=== PATIENT | male | born 1985 | race Caucasian/White ===

== ENCOUNTER 2016-11-15 20:33 | Inpatient (IN) | payer MEDICAID, OTHER ==
--- NOTE | 2016-11-15 20:42 | EDPHY ---
H & P - Personal History Tetanus Vaccine Date: 2012 HPI/ROS: CHIEF COMPLAINT: altered mental status HISTORY OF PRESENT ILLNESS: 31-year-old male arrives via ambulance after his roommates called 911 because of his altered mental status. The roommates provide the majority of history and states that when they came home he was altered, the patient has a history of frequent cocaine, benzodiazepine, recreational opiate use, alcohol use. Patient states that he did smoke cocaine earlier today. Roommates are not familiar with the etiology of his left ear trauma. They note no history of heroin or methamphetamine use. No history of overdose. No reliable history is obtainable from the patient. Roommate notes the last time he saw him was 10:00 p.m. last evening after the patient consumed a large amount of Xanax. The patient was given Narcan EN route via EMS with no change in symptoms. PRIMARY CARE PROVIDER:none REVIEW OF SYSTEMS: A ten point review of systems was performed and is negative with the exception of the items mentioned in the HPI PAST MEDICAL & SURGICAL HISTORY: No pertinent medical or surgical history according to roommate SOCIAL HISTORY:per roommates, history of cocaine, recreational opiate use, recreational benzodiazepine use, alcohol use. Has lived in [place] for several years PHYSICAL EXAM (Prior to examination, patient consented to physical exam, hands were washed and my usual and customary physical exam procedures followed) 1) GENERAL: Well-developed, well-nourished, alert and oriented person and place , he has difficulty sitting still, he is slurring his words . 2) HEAD: Normocephalic, atraumatic 3) HEENT: Pupils equal, round, reactive to light bilaterally. Sclera anicteric. No raccoon eyes no Andersen sign. Nasopharynx, oropharynx, clear, no lesions, dry mucous membranes. No rhinorrhea. No otorrhea Left ear: Auricular hematoma and abrasion noted with associated tenderness. No hemotympanum. No fluid or blood in the external auditory canal. 4) NECK: Full range of motion, no meningeal signs. No parent pain with palpation of the midline C-spine full range of motion which does not elicit pain 5) LUNGS: Clear auscultation bilaterally, no wheezes, no rhonchi, no retractions. 6) HEART: Regular rate and rhythm, no murmur, no heave, no gallop. 7) ABDOMEN: No guarding, no rebound, no focal tenderness, negative McBurney's, negative Christina's, negative Rovsing's, negative peritoneal sign, 8) MUSCULOSKELETAL: left pretibial scar. Tender to palpation with erythema to the left lateral buttock. Appears to be in pain with range of motion of the femur on acetabulum. There is no shortening or malrotation. No pain with axial loading of the joint. Distal DP PT pulses present and brisk with normal color normal temperature. Compartments are soft in peripheral musculoskeletal system. Moving all extremities, no focal areas of tenderness, no obvious trauma. No peripheral edema or discoloration. 9) BACK: No CVA tenderness, no midline vertebral tenderness, no fluctuance, no step-off, no obvious trauma, no visual or palpable abnormality. 10) SKIN: No rash, no petechiae. DIFFERENTIAL DIAGNOSIS: In no particular order ncluding but not limited to encephalopathy, hypoglycemia, infectious process, electrolyte abnormality, head injury and intoxicants, rhabdomyolysis, compartment syndrome, necrotizing fasciitis (Kev,Africa Janelle) Constitutional: Initial Vital Signs Temperature (C) 36.6 C 11/15/16 20:33 Heart Rate 126 H 11/15/16 20:33 Respiratory Rate 18 11/15/16 20:33 Blood Pressure 112/92 H 11/15/16 20:33 O2 Sat (%) 93 11/15/16 20:33 O2 Delivery Mode Nasal Cannula O2 (L/minute) 2 Allergies/Adverse Reactions: No Known Allergies Allergy (Unverified 04/17/11 14:13) Home Medications: Medication Instructions Recorded NK [No Known Home Meds] 11/16/16 Medical Decision Making - Diagnostics Imaging: Discussed imaging studies w/ call center support representative Radiologist ED Course/Re-evaluation: The patient was evaluated and managed by the physician's assistant designer. My cosignature indicates that I reviewed the chart and I agree with the findings and plan of care as documented. I am the secondary supervising physician. I personally evaluated the patient on numerous occasions. Shortly after his arrival I went examined the patient. GENERAL: Mild acute distress, alert but confused HEENT: Eyes normal to inspection, dry mucous membranes].Left ear swollen. No palpable hematoma. Small abrasion. NECK: No thyromegaly, no lymphadenopathy, supple. RESPIRATORY: [Clear to auscultation bilaterally, no rales, rhonchi or wheezing. CVS: Regular rhythm, tachy, no rubs, murmurs, or gallops. ABDOMEN: Soft, nontender, nondistended, no organomegaly. BACK: Normal to inspection, no CVA tenderness. SKIN: Warm, dry. No pallor. There is a plaque /hive type lesion on his left hip. EXTREMITIES: No pedal edema, no calf tenderness, no Homans sign or cords, no joint swelling. Moves all extremities. NEURO/PSYCH: Alert and oriented x1, confused, normal motor sensory exam. No obvious cranial nerve deficit. I discussed the plan on numerous occasions with Kevin prado. I rechecked the patient on numerous occasions. I had a long discussion with the patient's roommate regarding his presentation. They state that he uses cocaine, opioids and alcohol regularly. They have never seen the patient use methamphetamine. I reviewed the patient's laboratory studies and imaging. I discussed the case with the hospitalist service. Patient required 35 minutes of critical care time. This was exclusive of any unbundled procedure. This was due to the patient's altered mental status, rhabdomyolysis, discussion with roomates, patient, internal medicine. (Maria Esther Howard) 8:40 p.m.: Patient seen on arrival. I have evaluated this patient, he is altered, he has provided a clean-catch urine sample in the emergency department which it has gross hematuric appearance. I discussed the case with Dr. Maria Esther Howard shortly after evaluating the patient. Will obtain multiple diagnostic studies for evaluation of altered mental status including creatinine kinase, toxicology and CT imaging as he is noted to have injury to his left ear and states that 2 days ago he fell off a skateboard impacting his head. CORHIO search is negative. 9:53 p.m.: Patient has been re-evaluated with serial examinations. Official concerns patient is his altered mental status possibly secondary to acute rhabdomyolysis. At this time his creatinine kinase is still being diluted in the laboratory. We have followed the sepsis pathway concerned about possible infection however also concerned about encephalopathy and rhabdomyolysis. He does have an elevated lactate, he has been given aggressive fluid hydration, is noted to have a left sided pneumonia a possibly consistent with aspiration pneumonia as his roommates notes that he has been on his left side for most of the evening they found him on the left side is also noted to have left buttock erythema. Will start the patient on Levaquin as well. 10:20 p.m.: Phone consultation with Dr. Brenden Car, hospitalist to admit patient to the intensive care unit (Africa Angulo) - Data Points Laboratory Results: Laboratory Results 11/15/16 20:30 11/15/16 20:30 Microbiology Results: MICROBIOLOGY 11/15/16 20:25 Urine,Clean Catch Urine Culture - Preliminary Medications Given: Discontinued Medications Fentanyl (Sublimaze) 50 mcg IVP EDNOW ONE Stop: 11/15/16 22:18 Last Admin: 11/15/16 22:20 Dose: 50 mcg Sodium Chloride (Ns) 1,000 mls @ 0 mls/hr IV ONCE ONE PRN Reason: Wide Open Stop: 11/15/16 21:00 Last Admin: 11/15/16 21:12 Dose: 1,000 mls Sodium Chloride (Ns) 1,000 mls @ 0 mls/hr IV ONCE ONE PRN Reason: Wide Open Stop: 11/15/16 21:23 Last Admin: 11/15/16 21:27 Dose: 1,000 mls Levofloxacin/Dextrose (Levaquin 750 Mg (Premix)) 150 mls @ 100 mls/hr IV EDNOW ONE PRN Reason: Protocol Stop: 11/15/16 23:20 Last Admin: 11/15/16 22:02 Dose: 150 mls Sodium Chloride (Ns) 2,300 mls @ 4,600 mls/hr 30 ml/kg infuse over 30 min ( 2300 ml) IV EDNOW ONE PRN Reason: Protocol Stop: 11/15/16 22:20 Last Admin: 11/15/16 22:02 Dose: 2,300 mls Vancomycin HCl 1.5 gm/ (Dextrose) 250 mls @ 166.67 mls/hr IV Q12H ASHLEY PRN Reason: Protocol Stop: 12/15/16 23:44 Last Admin: 11/16/16 00:05 Dose: 250 mls Lorazepam (Ativan Injection) 1 mg IVP EDNOW ONE Stop: 11/15/16 21:23 Last Admin: 11/15/16 21:27 Dose: 1 mg Lorazepam (Ativan Injection) 1 - 2 mg IVP Q4HRS PRN PRN Reason: Anxiety, Unable to Take PO Stop: 05/14/17 23:31 Last Admin: 11/15/16 23:56 Dose: 2 mg Departure - Departure Disposition: [facility] Inpatient Acute Clinical Impression: Encephalopathy acute, Acute hyperkalemia, Dehydration, Polysubstance abuse Acute renal failure Qualifiers: Acute renal failure type: unspecified Qualified Code(s): N17.9 - Acute kidney failure, unspecified Rhabdomyolysis Qualifiers: Rhabdomyolysis type: traumatic Encounter type: initial encounter Qualified Code (s): T79.6XXA - Traumatic ischemia of muscle, initial encounter Hematoma of auricle Qualifiers: Encounter type: initial encounter Laterality: left Qualified Code(s): S00.432A - Contusion of left ear, initial encounter Condition: Critical
--- NOTE | 2016-11-15 20:54 | CPEKG ---
Heart Rate: 126 RR Interval: 476 P-R Interval: 116 QRSD Interval: 92 QT Interval: 300 QTC Interval: 435 P [place]: 54 QRS [place]: 70 T Wave [place]: 49 EKG Severity - OTHERWISE NORMAL ECG - EKG Impression: SINUS TACHYCARDIA EKG Impression: ST ELEV, PROBABLE NORMAL EARLY REPOL PATTERN Electronically Signed By: Maria Esther Howard 15-Nov-2016 23:17:21
[2016-11-15 20:58] LABS: % IMMATURE GRANULYOCYTES 0.9 % (0.0-1.1); ABSOLUTE IMMATURE GRANULOCYTES 0.19 10^3/uL (0.00-0.10); ABSOLUTE NRBC COUNT 0.02 10^3/uL (0-0.01); ADD DIFF? NO; ADD MORPH? NO; ADD SCAN? NO; ATYPICAL LYMPHOCYTE FLAG 0 (0-99); FRAGMENT RBC FLAG 0 (0-99); HEMATOCRIT 49.4 % (40.0-51.0); HEMOGLOBIN 17.1 g/dL (13.7-17.5); LEFT SHIFT FLG 0 (0-99); LIPEMIA HEMOLYSIS FLAG 90 (0-99); MEAN CELL HEMOGLOBIN 32.8 pg (27.9-34.1); MEAN CELL HEMOGLOBIN CONCENTR. 34.6 g/dL (32.4-36.7); MEAN CELL VOLUME 94.6 fL (81.5-99.8); MEAN PLATELET VOLUME 10.1 fL (8.7-11.7); NRBC-AUTO% 0.1 % (0.0-0.2); PLATELET CLUMPS FLAG 10 (0-99); PLATELET COUNT 320 10^3/uL (150-400); RED BLOOD CELL COUNT 5.22 10^6/uL (4.40-6.38); RED CELL DISTRIBUTION WIDTH 12.8 % (11.5-15.2)
[2016-11-15] MEDS ORDERED: NS 1,000 ML IV ONE ×2 (20:59→21:22)
[2016-11-15 21:06] LABS: INR 1.53 (0.83-1.16); PROTIME(PATIENT) 18.4 SEC (12.0-15.0)
[2016-11-15 21:07] LABS: APTT 30.8 SEC (23.0-38.0)
[2016-11-15 21:07] LABS: COLOR AMBER; LEUKOCYTE ESTERASE,URINE NEGATIVE (NEGATIVE); NITRITE,URINE NEGATIVE (NEGATIVE)
[2016-11-15 21:15] LABS: ALBUMIN 4.4 g/dL (3.5-5.0); ALKALINE PHOSPHATASE 74 IU/L (38-126); ANION GAP 16 mEq/L (8-16); BILIRUBIN-CONJUGATED 0.6 mg/dL (0.0-0.5); BILIRUBIN-UNCONJUGATED 0.4 mg/dL (0.0-1.1); CALCIUM 8.9 mg/dL (8.5-10.4); CARBON DIOXIDE 19 mEq/l (22-31); CHLORIDE 101 mEq/L (97-110); CREATININE 1.8 mg/dL (0.7-1.3); ETHANOL SERUM < 10 mg/dL (0-10); GLOMERULAR FILTRATION RATE 45; GLUCOSE 105 mg/dL (70-100); POTASSIUM 5.3 mEq/L (3.5-5.2); SALICYLATE < 1.0 mg/dL (2.0-20.0); SODIUM 136 mEq/L (134-144); SPECIMEN HEMOLYSIS 138; TOTAL PROTEIN 7.5 g/dL (6.3-8.2)
[2016-11-15 21:21] LABS: AMORPHOUS PRESENT /hpf (NONE-1+); MUCUS TRACE /lpf (NONE-1+)
[2016-11-15] MEDS ORDERED: LORazepam 2 MG/ML INJ IVP ONE (21:22)
[2016-11-15 21:36] LABS: ALANINE AMINOTRANSFERASE 3761 IU/L (21-72)
[2016-11-15 21:51] LABS: LACGHOST ORDER
[2016-11-15] MEDS ORDERED: NS 2,300 ML IV ONE (21:51)
[2016-11-15 21:53] LABS: ASPARTATE AMINOTRANSFERASE 5422 IU/L (17-59)
[2016-11-15 22:11] LABS: CK-MB INTERPRETATION NEGATIVE (NEGATIVE)
[2016-11-15] MEDS ORDERED: fentaNYL 100 MCG/2 ML INJ IVP ONE (22:17)
[2016-11-15] MEDS ORDERED: LORazepam 2 MG/ML INJ IVP PRN (23:32)
[2016-11-15] MEDS ORDERED: VANCOMYCIN 1.5 GM in D5W 250 ML IV SCH (23:45)
[2016-11-15] MEDS: NS 1,000 ML IV SCH (23:59)
--- NOTE | 2016-11-16 01:29 | PDGENHP ---
History and Physical - Chief Complaint Found down - History of Present Illness 31 yo M with no significant PMHx found down by friends and brought to ED. History obtained form friends as patient somnolent during my evaluation. Per his friends, he was in his usual state of health on the night prior to admission. He was seen ingesting several Xanax and gabapentin, as well as cocaine. It is unclear if additional ingestions took place. On the morning prior to arrival, friends encountered patient laying on his left side( apparently on L hip and L ear) and minimally responsive. At that point he was brought to ED. History Information - Allergies/Home Medication List Allergies/Adverse Reactions: No Known Allergies Allergy (Unverified 04/17/11 14:13) Home Medications: Miscellaneous Medical Supply [NO HOME MEDS] 1 ea MISC AD 11/10/12 [Last Taken Unknown] I have personally reviewed and updated: medical history - Past Medical History no pertinent PMH Additional medical history: Denies hx of seizures - Surgical History Reports: no pertinent surgical hx - Family History Additional family history: Deny family hx of neurologic disease - Social History Smoking Status: Smoker current status UNK Drug Use: Cocaine, Other (Xanax) Review of Systems Review of Systems: Unable to assess due to patient somnolence Physical Exam Temp Pulse Resp BP Pulse Ox 37.0 C 110 H 26 H 130/85 H 96 11/15/16 23:00 11/16/16 01:00 11/16/16 01:00 11/16/16 01:00 11/16/16 01:00 O2 (L/minute) 2 Constitutional: other (Somnolent, minimally responsive) Eyes: PERRL, anicteric sclera Ears, Nose, Mouth, Throat: moist mucous membranes, no oral mucosal ulcers, other (Erythema and superficial ulceration of L ear helix) Cardiovascular: no murmur, rub, or gallop, tachycardia Respiratory: no respiratory distress, rhonchi (Throughout) Gastrointestinal: normoactive bowel sounds, soft, non-tender abdomen Skin: erythema (Noted on L buttocks with irregular outline, significant tenderness, and mild firmness) Neurologic: sensation intact bilaterally, CN II-XII Intact Psychiatric: other (Somnolent) Lab Data & Imaging Review 11/15/16 20:30 11/15/16 20:30 WBC 21.08 10^3/uL (3.80-9.50) H 11/15/16 20:30 RBC 5.22 10^6/uL (4.40-6.38) 11/15/16 20:30 Hgb 17.1 g/dL (13.7-17.5) 11/15/16 20:30 POC Hgb 18.0 gm/dL (13.7-17.5) H 11/15/16 20:39 Hct 49.4 % (40.0-51.0) 11/15/16 20:30 POC Hct 53 % (40-51) H 11/15/16 20:39 MCV 94.6 fL (81.5-99.8) 11/15/16 20:30 MCH 32.8 pg (27.9-34.1) 11/15/16 20:30 MCHC 34.6 g/dL (32.4-36.7) 11/15/16 20:30 RDW 12.8 % (11.5-15.2) 11/15/16 20:30 Plt Count 320 10^3/uL (150-400) 11/15/16 20:30 MPV 10.1 fL (8.7-11.7) 11/15/16 20:30 Neut % (Auto) 85.9 % (39.3-74.2) H 11/15/16 20:30 Lymph % (Auto) 7.4 % (15.0-45.0) L 11/15/16 20:30 [place] % (Auto) 5.6 % (4.5-13.0) 11/15/16 20:30 Eos % (Auto) 0.0 % (0.6-7.6) L 11/15/16 20:30 Baso % (Auto) 0.2 % (0.3-1.7) L 11/15/16 20:30 Nucleat RBC Rel Count 0.1 % (0.0-0.2) 11/15/16 20:30 Absolute Neuts (auto) 18.12 10^3/uL (1.70-6.50) H 11/15/16 20:30 Absolute Lymphs (auto) 1.56 10^3/uL (1.00-3.00) 11/15/16 20:30 Absolute Monos (auto) 1.17 10^3/uL (0.30-0.80) H 11/15/16 20:30 Absolute Eos (auto) 0.00 10^3/uL (0.03-0.40) L 11/15/16 20:30 Absolute Basos (auto) 0.04 10^3/uL (0.02-0.10) 11/15/16 20:30 Absolute Nucleated RBC 0.02 10^3/uL (0-0.01) H 11/15/16 20:30 Immature Gran % 0.9 % (0.0-1.1) 11/15/16 20:30 Immature Gran # 0.19 10^3/uL (0.00-0.10) H 11/15/16 20:30 PT 18.4 SEC (12.0-15.0) H 11/15/16 20:30 INR 1.53 (0.83-1.16) H 11/15/16 20:30 APTT 30.8 SEC (23.0-38.0) 11/15/16 20:30 VBG Lactic Acid 1.8 mmol/L (0.7-2.1) 11/15/16 22:35 Carboxyhemoglobin 2.7 % (0-1.5) H 11/15/16 20:45 POC Sodium 137 mEq/L (134-144) 11/15/16 20:39 Sodium 136 mEq/L (134-144) 11/15/16 20:30 POC Potassium 5.0 mEq/L (3.3-5.0) 11/15/16 20:39 Potassium 5.3 mEq/L (3.5-5.2) H 11/15/16 20:30 POC Chloride 102 mEq/L (97-110) 11/15/16 20:39 Chloride 101 mEq/L (97-110) 11/15/16 20:30 Carbon Dioxide 19 mEq/l (22-31) L 11/15/16 20:30 Anion Gap 16 mEq/L (8-16) 11/15/16 20:30 POC BUN 49 mg/dL (7-23) H 11/15/16 20:39 BUN 39 mg/dL (7-23) H 11/15/16 20:30 Creatinine 1.8 mg/dL (0.7-1.3) H 11/15/16 20:30 POC Creatinine 2.0 mg/dL (0.7-1.3) H 11/15/16 20:39 Estimated GFR 45 11/15/16 20:30 Glucose 105 mg/dL (70-100) H 11/15/16 20:30 POC Glucose 119 mg/dL (70-100) H 11/15/16 20:39 Calcium 8.9 mg/dL (8.5-10.4) 11/15/16 20:30 Total Bilirubin 1.0 mg/dL (0.1-1.4) 11/15/16 20:30 Conjugated Bilirubin 0.6 mg/dL (0.0-0.5) H 11/15/16 20:30 Unconjugated Bilirubin 0.4 mg/dL (0.0-1.1) 11/15/16 20:30 AST 5422 IU/L (17-59) H 11/15/16 20:30 ALT 3761 IU/L (21-72) H 11/15/16 20:30 Alkaline Phosphatase 74 IU/L (38-126) 11/15/16 20:30 Ammonia 22.0 uMOL/L (9.0-30.0) 11/15/16 21:10 Creatine Kinase > 19207 IU/L (0-224) H 11/15/16 20:30 CK-MB (CK-2) Fraction 215.00 ng/mL (0-3.19) H 11/15/16 20:30 CK-MB (CK-2) % 0.0 % (0.0-4.0) 11/15/16 20:30 Creatine Kinase Interp NEGATIVE (NEGATIVE) 11/15/16 20:30 Total Protein 7.5 g/dL (6.3-8.2) 11/15/16 20:30 Albumin 4.4 g/dL (3.5-5.0) 11/15/16 20:30 Specimen Hemolysis 138 11/15/16 20:30 Urine Color MARY ANNE 11/15/16 20:25 Urine Appearance HAZY 11/15/16 20:25 Urine pH 5.0 (5.0-7.5) 11/15/16 20:25 Ur Specific [place] 1.019 (1.002-1.030) 11/15/16 20:25 Urine Protein 2+ (NEGATIVE) H 11/15/16 20:25 Urine Ketones NEGATIVE (NEGATIVE) 11/15/16 20:25 Urine Blood 3+ (NEGATIVE) H 11/15/16 20:25 Urine Nitrate NEGATIVE (NEGATIVE) 11/15/16 20:25 Urine Bilirubin NEGATIVE (NEGATIVE) 11/15/16 20:25 Urine Urobilinogen 2.0 EU (0.2-1.0) H 11/15/16 20:25 Ur Leukocyte Esterase NEGATIVE (NEGATIVE) 11/15/16 20:25 Urine RBC 1-3 /hpf (0-3) 11/15/16 20:25 Urine WBC 1-3 /hpf (0-3) 11/15/16 20:25 Ur Epithelial Cells TRACE /lpf (NONE-1+) 11/15/16 20:25 Amorphous Sediment PRESENT /hpf (NONE-1+) 11/15/16 20:25 Hyaline Casts 1-5 /lpf (0-1) 11/15/16 20:25 Granular Casts 1-5 /lpf (0-1) 11/15/16 20:25 Urine Mucus TRACE /lpf (NONE-1+) 11/15/16 20:25 Urine Glucose 1+ (NEGATIVE) H 11/15/16 20:25 Salicylates < 1.0 mg/dL (2.0-20.0) L 11/15/16 20:30 Urine Opiates Screen NON-NEGATIVE (NEGATIVE) H 11/15/16 20:25 Acetaminophen < 10 mcg/mL (10.0-30.0) L 11/15/16 20:30 Urine Barbiturates NEGATIVE (NEGATIVE) 11/15/16 20:25 Ur Phencyclidine Scrn NEGATIVE (NEGATIVE) 11/15/16 20:25 Ur Amphetamine Screen NEGATIVE (NEGATIVE) 11/15/16 20:25 U Benzodiazepines Scrn NON-NEGATIVE (NEGATIVE) H 11/15/16 20:25 Urine Cocaine Screen NON-NEGATIVE (NEGATIVE) H 11/15/16 20:25 U Marijuana (THC) Screen NEGATIVE (NEGATIVE) 11/15/16 20:25 Ethyl Alcohol < 10 mg/dL (0-10) 11/15/16 20:30 Imaging Review: CXR w/ L sided pneumonia, CT Head and C-spine without acute abnormality Chest X-Ray results: infiltrate Visualized and Interpreted imaging results: Yes Visualized and Interpreted EKG results: Yes EKG Interpretation: Positive for: other (Sinus tach) Assessment & Plan Assessment: Mr. Kevin Fong is a 31 yo M with no significant PMHx presenting with acute encephalopathy, rhabdomyolysis, renal failure, and likely aspiration pneumonia in the setting of polysubstance abuse and extended period of unconsciousness. Plan: 1. Acute toxic and metabolic encephalopathy - Multifactorial etiology, including polysubstance abuse, rhabdomyolysis, and severe end organ dysfunction. Currently protecting airway well, will monitor in ICU. 2. Rhabdomyolysis - Likely a combination of drug-induced and long period of immobility. CK >30,000, Cr 2.0, and dark urine. - Aggressive IVF - Monitor CK 3. Sepsis 2/2 aspiration pneumonia - CXR w/ PAULA pneumonia, WBC 21, HR > 90. Hemodynamically stable currently. - Blood and urine cultures pending - Vanc/Zosyn ordered, step down once stable 4. MARIA ELENA - Cr 2.0 on admission, 2/2 rhabdomyolysis. Aggressive IVF 5. Abnormal LFTs - Suspect related to rhabdomyolysis and muscle breakdown. Aggressive IVF, continue to trend. 6. Pressure injuries - Noted on L ear helix and L buttocks. Will monitor carefully. Imaging of hips unremarkable. Diet - NPO Tiffanie - Full Ppx - LMWH Dispo - Admit to ICU I personally spent 60 minutes of critical care time examining patient, interpreting laboratory and imaging studies, and guiding care with nursing staff.
[2016-11-16] MEDS: LORazepam 2 MG/ML INJ IVP PRN ×5 (02:30→23:33)
[2016-11-16] MEDS ORDERED: LORazepam 2 MG/ML INJ ONE (02:37)
[2016-11-16] MEDS: fentaNYL 100 MCG/2 ML INJ IVP PRN ×5 (03:13→23:32)
[2016-11-16 05:53] LABS: % IMMATURE GRANULYOCYTES 0.6 % (0.0-1.1); ADD DIFF? NO; ADD MORPH? NO; ADD SCAN? NO; ATYPICAL LYMPHOCYTE FLAG 0 (0-99); FRAGMENT RBC FLAG 0 (0-99); HEMATOCRIT 46.1 % (40.0-51.0); LEFT SHIFT FLG 0 (0-99); LIPEMIA HEMOLYSIS FLAG 90 (0-99); MEAN CELL HEMOGLOBIN 32.4 pg (27.9-34.1); MEAN CELL HEMOGLOBIN CONCENTR. 34.7 g/dL (32.4-36.7); MEAN CELL VOLUME 93.3 fL (81.5-99.8); MEAN PLATELET VOLUME 9.6 fL (8.7-11.7); PLATELET CLUMPS FLAG 0 (0-99); PLATELET COUNT 197 10^3/uL (150-400); RED BLOOD CELL COUNT 4.94 10^6/uL (4.40-6.38); RED CELL DISTRIBUTION WIDTH 12.8 % (11.5-15.2)
[2016-11-16 06:09] LABS: ALBUMIN 3.1 g/dL (3.5-5.0); ALKALINE PHOSPHATASE 65 IU/L (38-126); ANION GAP 8 mEq/L (8-16); BILIRUBIN,TOTAL 0.9 mg/dL (0.1-1.4); CARBON DIOXIDE 22 mEq/l (22-31); CHLORIDE 105 mEq/L (97-110); CREATININE 1.4 mg/dL (0.7-1.3); GLOMERULAR FILTRATION RATE 60; GLUCOSE 96 mg/dL (70-100); MAGNESIUM 2.2 mg/dL (1.6-2.3); POTASSIUM 4.1 mEq/L (3.5-5.2); SODIUM 135 mEq/L (134-144); TOTAL PROTEIN 5.8 g/dL (6.3-8.2)
[2016-11-16 06:10] LABS: INR 1.6 (0.83-1.16); PROTIME(PATIENT) 19.1 SEC (12.0-15.0)
[2016-11-16 06:36] LABS: ALANINE AMINOTRANSFERASE 2942 IU/L (21-72); ASPARTATE AMINOTRANSFERASE 3433 IU/L (17-59)
[2016-11-16 06:48] LABS: CK-MB INTERPRETATION NEGATIVE (NEGATIVE)
[2016-11-16] MEDS: PIPERACILLIN/TAZO 3.375 GM/DEX 50 ML IV SCH ×5 (07:40→23:33)
[2016-11-16] MEDS: ENOXAPARIN 40 MG/0.4 ML SYR SC SCH (09:02)
--- NOTE | 2016-11-16 11:27 | HOSPPROG ---
Hospitalist Progress Note Assessment/Plan: Assessment: Mr. Kevin Fong is a 31 yo M new to my care 11/16/16 with no significant PMHx presenting with: #acute encephalopathy likely toxic metabolic in the setting of polysubstance abuse -ct head given persistent confusion and evidence for trauma #rhabdomyolysis -cont iv ns @200ML/hr -monitor urine output and daily cpk -monitor renal function #MARIA ELENA (improving) #Sepsis vs hypovolemia with evidence of aspiration vs pneumonitis -check pct -dc vanco -cont zosyn for now at renal dosing #hepatocellular injury/necrosis -tylenol level is negative -continue to monitor #Pressure injuries - Noted on L ear helix and L buttocks. Will monitor carefully. Imaging of hips unremarkable. #mildly elevated carboxyhemoglobin doubt CO poisoning #Internal capsule hypodensities seen on head ct -suspect related to hypoperfusion -consider brain mri if mentation not improving Diet - NPO Continue ICU level care Subjective: pt is confused and unreliable. oriented to city only Objective: Vital Signs Temp Pulse Resp BP Pulse Ox 36.8 C 100 24 H 134/89 H 98 11/16/16 10:00 11/16/16 10:00 11/16/16 10:00 11/16/16 10:00 11/16/16 10:00 Laboratory Results 11/16/16 05:40 11/16/16 05:40 11/15/16 11/16/16 11/17/16 05:59 05:59 05:59 Intake Total 3000 1000 Output Total 2200 Balance 800 1000 PT 19.1 SEC (12.0-15.0) H 11/16/16 05:40 INR 1.60 (0.83-1.16) H 11/16/16 05:40 - Physical Exam Eyes: PERRL, anicteric sclera, EOMI Ears, Nose, Mouth, Throat: moist mucous membranes, hearing normal, ears appear normal, no oral mucosal ulcers Cardiovascular: regular rate and rhythym, no murmur, rub, or gallop Respiratory: no respiratory distress, no rales or rhonchi, clear to auscultation Gastrointestinal: normoactive bowel sounds, soft, non-tender abdomen, no palpable masses, No guarding, No rebound Neurologic: CN II-XII Intact, other (oriented to city only) Psychiatric: encephalopathic, poor insight, poor judgement, poor memory ICD10 Worksheet Patient Problems: Problems Problem Status Onset Encephalopathy acute Acute Acute hyperkalemia Acute Acute renal failure Acute Dehydration Acute Rhabdomyolysis Acute Polysubstance abuse Acute Hematoma of auricle Acute
--- NOTE | 2016-11-16 11:42 | GCON ---
[f rep st] CONSULTATION MATERIAL ANALYST CONSULTATION REASON FOR ADMISSION: Polysubstance abuse, rhabdomyolysis. The patient is a 31-year-old, white mal e without past medical history. He was found down by his roommates and was subsequently brought to the emergency room. He was markedly somnolent. he had been not seen for 15 hours. He was seen in the emergency room and subsequently admitted to the intensive care unit. The patient is markedly so mnolent, unable to provide any history. All history is gleaned from the medical record. PAST MEDICAL HISTORY: None. PAST SURGICAL HISTORY: None. ALLERGIES: No known allergies to medications. SOCIAL HISTORY: Current smoker. Drug use includes cocaine, Xanax, methamphetamine. PHYSICAL EXAM: VITAL SIGNS: Blood pressure is 134/89, pulse is 100, respirations 24, temperature 3 6.8, oxygen saturation 98% on room air. GENERAL: He is a well-developed, well-nourished, 31-year-o ld, white male who is somnolent. HEENT: Eyes are PERRLA, EOMI. Throat shows no erythema or tonsil lar hypertrophy. NECK: Supple. There is no cervical adenopathy. He has some bruising on the left side of his head. HEART: regular rate and rhythm without murmurs, rubs, gallops. LUNGS: Clear t o auscultation. No wheeze or rhonchi. ABDOMEN: Soft, nontender. Bowel sounds are present in all 4 quadrants. EXTREMITIES: No clubbing, cyanosis, or edema. LABORATORIES: White count 16, hemoglobin 16, hematocrit 46, platelet count is 197. INR is 1.6. So dium was 135, potassium 4.1, chloride 105, CO2 is 22, BUN 31, creatinine 1.4, glucose is 96. CPK is greater than 30,000. AST initially was 5422. it is currently 3433. ALT was elevated at 3761. It is currently 2942. Urine drug screen is non negative for opiates, benzodiazepines, and cocaine. IMPRESSION: 1. Acute rhabdomyolysis. 2. Polysubstance use and overdose. 3. Acute renal failure. 4. Elevated transaminases. 5. Abnormal CT scan of the head, etiology which is unclear. 6. Pneumonia, likely aspiration. RECOMMENDATIONS: 1. Agree with current antibiotic coverage. 2. will obtain MRI of the brain at soonest. 3. DVT and PE prophylaxis. 4. Stress ulcer prophylaxis. 5. IV fluids. 6. follow BUN and creatinine closely. 7. Follow CPK closely. /[id number]/MODL
[2016-11-16] MEDS: NS 1,000 ML IV SCH (21:37)
[2016-11-16] MEDS: NICOTINE 21 MG/24 HR PATCH TD SCH (23:39)
[2016-11-17] MEDS: LORazepam 2 MG/ML INJ IVP PRN ×2 (01:57→05:02)
[2016-11-17] MEDS: NS 1,000 ML IV SCH ×2 (02:43→14:14)
[2016-11-17] MEDS: fentaNYL 100 MCG/2 ML INJ IVP PRN ×2 (05:02→08:59)
[2016-11-17] MEDS: PIPERACILLIN/TAZO 3.375 GM/DEX 50 ML IV SCH (05:03)
[2016-11-17 05:38] LABS: % IMMATURE GRANULYOCYTES 0.5 % (0.0-1.1); ABSOLUTE IMMATURE GRANULOCYTES 0.05 10^3/uL (0.00-0.10); ADD DIFF? NO; ADD MORPH? NO; ADD SCAN? NO; ATYPICAL LYMPHOCYTE FLAG 0 (0-99); FRAGMENT RBC FLAG 0 (0-99); HEMATOCRIT 43.9 % (40.0-51.0); HEMOGLOBIN 15.6 g/dL (13.7-17.5); LEFT SHIFT FLG 0 (0-99); LIPEMIA HEMOLYSIS FLAG 90 (0-99); MEAN CELL HEMOGLOBIN 32.8 pg (27.9-34.1); MEAN CELL HEMOGLOBIN CONCENTR. 35.5 g/dL (32.4-36.7); MEAN CELL VOLUME 92.2 fL (81.5-99.8); MEAN PLATELET VOLUME 9.7 fL (8.7-11.7); PLATELET CLUMPS FLAG 10 (0-99); PLATELET COUNT 147 10^3/uL (150-400); RED BLOOD CELL COUNT 4.76 10^6/uL (4.40-6.38); RED CELL DISTRIBUTION WIDTH 12.5 % (11.5-15.2)
[2016-11-17 06:18] LABS: ALBUMIN 2.5 g/dL (3.5-5.0); ALKALINE PHOSPHATASE 51 IU/L (38-126); ANION GAP 8 mEq/L (8-16); BILIRUBIN,TOTAL 1.4 mg/dL (0.1-1.4); CALCIUM 7.6 mg/dL (8.5-10.4); CARBON DIOXIDE 21 mEq/l (22-31); CHLORIDE 108 mEq/L (97-110); CREATININE 1.1 mg/dL (0.7-1.3); GLOMERULAR FILTRATION RATE > 60; GLUCOSE 84 mg/dL (70-100); POTASSIUM 4.3 mEq/L (3.5-5.2); SODIUM 137 mEq/L (134-144); TOTAL PROTEIN 4.9 g/dL (6.3-8.2)
[2016-11-17 06:58] LABS: ALANINE AMINOTRANSFERASE 2152 IU/L (21-72); ASPARTATE AMINOTRANSFERASE 1548 IU/L (17-59)
[2016-11-17 07:38] LABS: CK-MB INTERPRETATION NEGATIVE (NEGATIVE)
--- NOTE | 2016-11-17 09:12 | PDINTPN ---
Manager Baby Progress Note Assessment/Plan: Assessment/Plan: * Rhabdomyolysis-CPK markedly improved -continue hydration. Follow chemistries closely * Polysubstance abuse * Acute renal failure-resolved * Aspiration-chest x-ray markedly improved. Likely resolving pneumonitis rather than pneumonia * Abnormal CT scan of the head-will obtain a MRI * PT/OT * Out of bed * Pain control * Nutrition-adequate Subjective: Resting comfortably. Awake and alert and oriented x3 Objective: Vital Signs Temp Pulse Resp BP Pulse Ox 36.9 C 104 H 17 121/80 H 98 11/17/16 07:26 11/17/16 07:26 11/17/16 07:26 11/17/16 07:26 11/17/16 07:26 Laboratory Results 11/17/16 05:15 11/17/16 05:15 11/16/16 11/17/16 11/18/16 05:59 05:59 05:59 Intake Total 3000 9068 Output Total 2200 7100 Balance 800 1968 PT 19.1 SEC (12.0-15.0) H 11/16/16 05:40 INR 1.60 (0.83-1.16) H 11/16/16 05:40 Chest [id number] by myself. Marked improvement in left lower lobe infiltrates Physical Exam - Physical Exam General Appearance: WD/WN, alert, no apparent distress EENT: PERRL/EOMI, normal ENT inspection, pharynx normal, TMs normal Neck: non-tender, full range of motion, supple, normal inspection Respiratory: chest non-tender, lungs clear, normal breath sounds Cardiac/Chest: normal peripheral pulses, regular rate, rhythm Peripheral Pulses: 2+: carotid (R), carotid (L), femoral (R), femoral (L), dorsalis-pedis (R), dorsalis-pedis (L) Abdomen: normal bowel sounds, non-tender, soft Male Genitalia: deferred Rectal: deferred Skin: normal color, warm/dry Extremities: normal range of motion, non-tender, normal inspection, normal capillary refill ICD10 Worksheet Patient Problems: Problems Problem Status Onset Acute hyperkalemia Acute Acute renal failure Acute Dehydration Acute Encephalopathy acute Acute Hematoma of auricle Acute Polysubstance abuse Acute Rhabdomyolysis Acute
[2016-11-17] MEDS: NICOTINE 21 MG/24 HR PATCH TD SCH (09:46)
[2016-11-17] MEDS: ENOXAPARIN 40 MG/0.4 ML SYR SC SCH (09:46)
--- NOTE | 2016-11-17 11:07 | HOSPPROG ---
Hospitalist Progress Note Assessment/Plan: Assessment: Mr. Kevin Fong is a 31 yo M new to my care 11/16/16 with no significant PMHx presenting with: #acute encephalopathy likely toxic metabolic in the setting of polysubstance abuse (improving) #rhabdomyolysis (improving) -cont iv ns @200ML/hr -monitor urine output and daily cpk -monitor renal function #MARIA ELENA (improving) #Sepsis vs hypovolemia with evidence of aspiration vs pneumonitis with elevated pct -transition to oral augmentin -cxr visualized and interpreted showing improving infiltrate #hepatocellular injury/necrosis (improving) -tylenol level is negative -continue to monitor #Pressure injuries - Noted on L ear helix and L buttock/hip. Will monitor carefully. Imaging of hips unremarkable. #mildly elevated carboxyhemoglobin doubt CO poisoning #Internal capsule hypodensities seen on head ct -suspect related to hypoperfusion -consider brain mri if mentation not improving Diet - NPO transfer to med/surg Subjective: denies hi/si. reports left hip pain. no fever or chills. no cough or sob Objective: Vital Signs Temp Pulse Resp BP Pulse Ox 36.9 C 104 H 17 121/80 H 98 11/17/16 07:26 11/17/16 07:26 11/17/16 07:26 11/17/16 07:26 11/17/16 07:26 Laboratory Results 11/17/16 05:15 11/17/16 05:15 11/16/16 11/17/16 11/18/16 05:59 05:59 05:59 Intake Total 3000 9068 Output Total 2200 7100 Balance 800 1968 PT 19.1 SEC (12.0-15.0) H 11/16/16 05:40 INR 1.60 (0.83-1.16) H 11/16/16 05:40 ICD10 Worksheet Patient Problems: Problems Problem Status Onset Encephalopathy acute Acute Acute hyperkalemia Acute Acute renal failure Acute Dehydration Acute Rhabdomyolysis Acute Polysubstance abuse Acute Hematoma of auricle Acute
[2016-11-17] MEDS: oxyCODONE IR 5 MG TAB PO PRN ×3 (11:09→20:14)
--- NOTE | 2016-11-17 11:59 | WOCRNPDOC ---
WOCRN Advanced Assessment Note - Skin Integrity Problem, Advanced Assess Left Hip Dressing Type: Open to Air Exudate Amount: None Exudate Characteristic(s): None Christiana Wound Tissue: Intact Christiana Wound Swelling: Mild Wound Bed Color: Red Site Measurement - Head-to-Toe Length X Width X Depth (cm): [id number] Skin Integrity Problem Comment: Large area of blanching erythema noted over L hip, skin presently intact. Wound care was consulted to r/o pressure injury, because patient was found down. As tissues are blanching throughout, patient has no pressure injury at this time. Erythema was marked in ED, and continues to remain w/in original borders. Tissue over site is warmer and more swollen than adjacent skin. At this time, no specific recommendations other than off- loading site as much as possible. Will have nursing apply Accu-max pump to bed. Please re-consult wound care if wound develops or tissue becomes non-blanching.
[2016-11-17] MEDS: LIDOCAINE 5% 1 EA PATCH TD SCH (14:13)
[2016-11-17] MEDS: AMOXICILLIN/CLAVULANATE POT 875/125 MG TAB PO SCH (22:25)
[2016-11-17] MEDS ORDERED: GABAPENTIN 300 MG CAP PO ONE (23:13)
[2016-11-18] MEDS: oxyCODONE IR 5 MG TAB PO PRN ×6 (00:20→22:12)
[2016-11-18] MEDS: PATCH REMOVAL 1 EA PATCH TD SCH ×2 (00:23→22:17)
[2016-11-18 05:43] LABS: % IMMATURE GRANULYOCYTES 0.3 % (0.0-1.1); ABSOLUTE IMMATURE GRANULOCYTES 0.02 10^3/uL (0.00-0.10); ADD DIFF? NO; ADD MORPH? NO; ADD SCAN? NO; ATYPICAL LYMPHOCYTE FLAG 20 (0-99); FRAGMENT RBC FLAG 0 (0-99); HEMATOCRIT 40.8 % (40.0-51.0); HEMOGLOBIN 14.4 g/dL (13.7-17.5); LEFT SHIFT FLG 0 (0-99); LIPEMIA HEMOLYSIS FLAG 90 (0-99); MEAN CELL HEMOGLOBIN 32.6 pg (27.9-34.1); MEAN CELL HEMOGLOBIN CONCENTR. 35.3 g/dL (32.4-36.7); MEAN CELL VOLUME 92.3 fL (81.5-99.8); MEAN PLATELET VOLUME 9.5 fL (8.7-11.7); PLATELET CLUMPS FLAG 0 (0-99); PLATELET COUNT 140 10^3/uL (150-400); RED BLOOD CELL COUNT 4.42 10^6/uL (4.40-6.38); RED CELL DISTRIBUTION WIDTH 12.4 % (11.5-15.2)
[2016-11-18 05:59] LABS: ALBUMIN 2.5 g/dL (3.5-5.0); ALKALINE PHOSPHATASE 44 IU/L (38-126); ANION GAP 5 mEq/L (8-16); BILIRUBIN,TOTAL 1.1 mg/dL (0.1-1.4); CALCIUM 8.1 mg/dL (8.5-10.4); CARBON DIOXIDE 25 mEq/l (22-31); CHLORIDE 104 mEq/L (97-110); GLOMERULAR FILTRATION RATE > 60; GLUCOSE 103 mg/dL (70-100); POTASSIUM 3.8 mEq/L (3.5-5.2); SODIUM 134 mEq/L (134-144)
[2016-11-18 06:08] LABS: ALANINE AMINOTRANSFERASE 1948 IU/L (21-72); ASPARTATE AMINOTRANSFERASE 1371 IU/L (17-59)
[2016-11-18 06:54] LABS: CK-MB INTERPRETATION NEGATIVE (NEGATIVE)
[2016-11-18 07:09] LABS: CREATINE KINASE-MB FRACTION 8.76 ng/mL (0-3.19)
[2016-11-18] MEDS: AMOXICILLIN/CLAVULANATE POT 875/125 MG TAB PO SCH ×2 (08:40→22:06)
[2016-11-18] MEDS: LIDOCAINE 5% 1 EA PATCH TD SCH (08:41)
[2016-11-18] MEDS: ENOXAPARIN 40 MG/0.4 ML SYR SC SCH (08:41)
[2016-11-18] MEDS: NICOTINE 21 MG/24 HR PATCH TD SCH (09:25)
[2016-11-18] MEDS ORDERED: NS 1,000 ML IV SCH (10:30)
--- NOTE | 2016-11-18 12:00 | HOSPPROG ---
Hospitalist Progress Note Assessment/Plan: Assessment: Mr. Kevin Fong is a 31 yo M new to my care 11/16/16 with no significant PMHx presenting with: #acute encephalopathy likely toxic metabolic in the setting of polysubstance abuse (improving) #rhabdomyolysis (slow to improve) -cont iv ns @200ML/hr -monitor urine output and daily cpk -monitor renal function #MARIA ELENA (improving) #Sepsis vs hypovolemia with evidence of aspiration vs pneumonitis with elevated pct -transition to oral augmentin -cxr visualized and interpreted showing improving infiltrate #hepatocellular injury/necrosis (improving) -tylenol level is negative -continue to monitor #Pressure injuries - Noted on L ear helix and L buttock/hip. Will monitor carefully. Imaging of hips unremarkable. - Left ear has worsening swelling today as well as some bleeding at the helix and a bulla in the bowl. I discussed case with kem Doll from ENT who will see the patient later today to assess for possible drainage of a auricular hematoma #mildly elevated carboxyhemoglobin doubt CO poisoning #Internal capsule hypodensities seen on head ct -suspect related to hypoperfusion -consider brain mri if mentation not improving Diet - NPO transfer to med/surg Subjective: left hip pain is improving. He reports normal urine output. He has been eating. Objective: Vital Signs Temp Pulse Resp BP Pulse Ox 36.8 C 76 18 113/75 96 11/18/16 11:31 11/18/16 11:31 11/18/16 11:31 11/18/16 11:31 11/18/16 11:31 Laboratory Results 11/18/16 05:00 11/18/16 05:00 11/17/16 11/18/16 11/19/16 05:59 05:59 05:59 Intake Total 9068 750 Output Total 7100 500 300 Balance 1968 250 -300 PT 19.1 SEC (12.0-15.0) H 11/16/16 05:40 INR 1.60 (0.83-1.16) H 11/16/16 05:40 - Physical Exam Constitutional: no apparent distress, appears nourished, not in pain Ears, Nose, Mouth, Throat: other ( Worsening swelling of the left ear including the helix, pinna as well as a new a bulla) Cardiovascular: regular rate and rhythym, no murmur, rub, or gallop Respiratory: no respiratory distress, no rales or rhonchi, clear to auscultation , No rhonchi Gastrointestinal: normoactive bowel sounds, soft, non-tender abdomen, no palpable masses, No guarding, No rebound ICD10 Worksheet Patient Problems: Problems Problem Status Onset Encephalopathy acute Acute Acute hyperkalemia Acute Acute renal failure Acute Dehydration Acute Rhabdomyolysis Acute Polysubstance abuse Acute Hematoma of auricle Acute
[2016-11-18] MEDS: LORazepam 2 MG/ML INJ IVP PRN (12:45)
--- NOTE | 2016-11-18 14:24 | WOCRNPDOC ---
WOCRN Advanced Assessment Note - Skin Integrity Problem, Advanced Assess Left Ear Blister Dressing Type: Open to Air Wound Bed Constitution: Intact Serous Filled Blister Site Measurement - Head-to-Toe Length X Width X Depth (cm): 0.7x0.7xraised blister Pressure Injury Stage: Stage 2 Pressure Injury Present on Admit: Yes Skin Integrity Problem Comment: Stage 2 on antihelix. Will leave blister intact in hopes it will reabsorb. Left Posterior Ear Pressure Injury Dressing Type: Open to Air Exudate Amount: None Wound Bed Color: Black, [place], Yellow Wound Bed Constitution: Smooth Tissue, Stable Eschar Site Measurement - Head-to-Toe Length X Width X Depth (cm): 4.5x2.5x0.1 Pressure Injury Stage: Deep Tissue Injury (DTI) Pressure Injury Present on Admit: Yes Skin Integrity Problem Comment: Evolving deep tissue injury where the ear attaches to the head. Full thickness. Will try to keep a hydrogel sheet dressing on area to maintain moisture as about 10% is currently eschar. Will recheck later this week. Left Upper Ear Pressure Injury Dressing Type: Open to Air Exudate Amount: None Christiana Wound Tissue: Erythema Christiana Wound Swelling: Mild Site Measurement - Head-to-Toe Length X Width X Depth (cm): 0.5x2x0.1 Pressure Injury Stage: Stage 2 Pressure Injury Present on Admit: Yes Skin Integrity Problem Comment: Wound on helix. Partial thickness wound with dried areas and small open areas. Difficult to assess as patient is quite tender and there is dried exudate. Does not appear infected. Due to location it will be difficult to maintain a dressing here. Leave area open to air at this time.
[2016-11-18] MEDS: NS 1,000 ML IV SCH ×2 (15:25→20:24)
[2016-11-19] MEDS: NS 1,000 ML IV SCH ×4 (01:23→22:48)
--- NOTE | 2016-11-19 02:25 | GCON ---
[f rep st] CONSULTATION HISTORY OF PRESENT ILLNESS: This is a 31-year-old male who was admitted to the hospital on November, after his roommates called 911 because of altered mental status. The patient has a history of frequent cocaine, benzodiazepine, recreational opiate use, as well as alcohol use. This patient was admitted to the hospital for acute rhabdomyolysis due to being down for a prolonged period of ti me. ENT is consulted for evaluation of the patient's left ear, as he likely had significant pressur e on his left ear while he was down. The patient continues to complain of left ear pain. He denies any otorrhea or hearing loss. Denies any tinnitus. He does note some pain with motion of the quinn zheng. The patient denies any history of ear problems. PHYSICAL EXAM: This is a 31-year-old male, in no acute distress. HEAD: Atraumatic, normocephalic. EARS: A left edematous auricle without discrete palpable fluctuance to suggest hematoma versus se nilson. He does have an ulcer on the helix as well as just posterior to his left ear without draining fluid. External auditory canal is normal. Tympanic membrane is normal without middle ear effusion . Oropharynx is normal. PROCEDURE: After written informed consent was obtained from the patient, an attempt was made to asp irate fluid from the left auricle. Topical lidocaine jelly was used for topical anesthesia, followe d by 1 cc of lidocaine with epinephrine. An 18-gauge needle was then used to attempt aspiration of possible fluid without success. This was attempted 2 times without fluid return. The patient zainab ated it well. Nursing will continue to dress the ear as they have been. ASSESSMENT AND PLAN: This is a 31-year-old male with a recent overdose, who has pressure ulcer to t he left ear. At this time, there is no palpable fluid and there was no fluid return on aspiration. I did discuss risks of the injury with the patient including necrosis of auricular skin as well as possible long-term cartilage deformity. The patient, at the end of the visit, was talking about pos sibly signing himself out AMA. Therefore, I recommended the patient follow up with our office as an outpatient by calling [phone]. If the patient continues to be in house, I will continue to fo llow along to be sure that the ear is progressing in a manner of healing. 1. Continue dressing per nursing. Okay to use ice for swelling. 2. If the patient is discharged home or leaves AMA, please give the patient our phone number, , so that he can follow up within the next several days following discharge, to be sure the e ar is progressing toward healing. Thank you so much for allowing us to participate in the care of this patient. If you have any furth er questions regarding his care, please do not hesitate to contact me. /[phone]/MODL
[2016-11-19] MEDS: oxyCODONE IR 5 MG TAB PO PRN ×4 (02:35→20:17)
[2016-11-19 05:41] LABS: % IMMATURE GRANULYOCYTES 0.5 % (0.0-1.1); ABSOLUTE IMMATURE GRANULOCYTES 0.04 10^3/uL (0.00-0.10); ADD DIFF? NO; ADD MORPH? NO; ADD SCAN? NO; ATYPICAL LYMPHOCYTE FLAG 40 (0-99); FRAGMENT RBC FLAG 0 (0-99); HEMATOCRIT 41.6 % (40.0-51.0); HEMOGLOBIN 14.6 g/dL (13.7-17.5); LEFT SHIFT FLG 0 (0-99); LIPEMIA HEMOLYSIS FLAG 90 (0-99); MEAN CELL HEMOGLOBIN 32.9 pg (27.9-34.1); MEAN CELL HEMOGLOBIN CONCENTR. 35.1 g/dL (32.4-36.7); MEAN CELL VOLUME 93.7 fL (81.5-99.8); MEAN PLATELET VOLUME 9.5 fL (8.7-11.7); PLATELET CLUMPS FLAG 0 (0-99); PLATELET COUNT 145 10^3/uL (150-400); RED BLOOD CELL COUNT 4.44 10^6/uL (4.40-6.38); RED CELL DISTRIBUTION WIDTH 12.2 % (11.5-15.2)
[2016-11-19 05:57] LABS: ALBUMIN 2.6 g/dL (3.5-5.0); ALKALINE PHOSPHATASE 46 IU/L (38-126); ANION GAP 7 mEq/L (8-16); BILIRUBIN,TOTAL 1.1 mg/dL (0.1-1.4); CALCIUM 8.3 mg/dL (8.5-10.4); CARBON DIOXIDE 23 mEq/l (22-31); CHLORIDE 105 mEq/L (97-110); CREATININE 0.9 mg/dL (0.7-1.3); GLOMERULAR FILTRATION RATE > 60; GLUCOSE 85 mg/dL (70-100); POTASSIUM 4.1 mEq/L (3.5-5.2); SODIUM 135 mEq/L (134-144); TOTAL PROTEIN 5.1 g/dL (6.3-8.2)
[2016-11-19 06:05] LABS: ALANINE AMINOTRANSFERASE 1597 IU/L (21-72); ASPARTATE AMINOTRANSFERASE 1172 IU/L (17-59)
[2016-11-19 06:18] LABS: CK-MB INTERPRETATION NEGATIVE (NEGATIVE)
[2016-11-19] MEDS: ENOXAPARIN 40 MG/0.4 ML SYR SC SCH (08:18)
[2016-11-19] MEDS: AMOXICILLIN/CLAVULANATE POT 875/125 MG TAB PO SCH ×2 (08:19→20:17)
[2016-11-19] MEDS: LIDOCAINE 5% 1 EA PATCH TD SCH (08:19)
[2016-11-19] MEDS: NICOTINE 21 MG/24 HR PATCH TD SCH (08:39)
--- NOTE | 2016-11-19 10:34 | SOAPPROG ---
SOAP Progress Note Assessment/Plan: Assessment: 31 year old male with improved edema/ulceration to left ear. No palpable fluid to drain. If patient is still in the hospital in the next several days and the ear worsens, please reconsult ENT and we will reattempt draining it. Continue dressing Can ice for swelling Seen and discussed with Dr. Lewis and he agrees 11/19/16 10:32 Subjective: Ear feels slightly better. Pain improved. CPK still elevated. Objective: Vital Signs Temp Pulse Resp BP Pulse Ox 36.7 C 60 18 127/70 H 94 11/19/16 07:56 11/19/16 07:56 11/19/16 07:56 11/19/16 07:56 11/19/16 07:56 Laboratory Results 11/19/16 05:17 11/19/16 05:17 11/18/16 11/19/16 11/20/16 05:59 05:59 05:59 Intake Total 750 2920 Output Total 500 650 Balance 250 2270 PT 19.1 SEC (12.0-15.0) H 11/16/16 05:40 INR 1.60 (0.83-1.16) H 11/16/16 05:40 Improved edema of ear Continued ulceration No palpable fluctuance ICD10 Worksheet Patient Problems: Problems Problem Status Onset Acute hyperkalemia Acute Acute renal failure Acute Dehydration Acute Encephalopathy acute Acute Hematoma of auricle Acute Polysubstance abuse Acute Rhabdomyolysis Acute
--- NOTE | 2016-11-19 14:04 | HOSPPROG ---
Hospitalist Progress Note Assessment/Plan: Assessment: Mr. Kevin Fong is a 31 yo M new to my care 11/16/16 with no significant PMHx presenting with: #acute encephalopathy likely toxic metabolic in the setting of polysubstance abuse (improving) #rhabdomyolysis (slow to improve) -cont iv ns @200ML/hr -monitor urine output and daily cpk -monitor renal function #MARIA ELENA (improving) #Sepsis vs hypovolemia with evidence of aspiration vs pneumonitis with elevated pct -cont oral augmentin #hepatocellular injury/necrosis (improving) -tylenol level is negative -continue to monitor -check hepatitis panel with next blood draw #Pressure injuries - Noted on L ear helix and L buttock/hip. Will monitor carefully. Imaging of hips unremarkable. - Left ear has worsening swelling today as well as some bleeding at the helix and a bulla in the bowl. I discussed case with a Sohail Doll from ENT who will see the patient later today to assess for possible drainage of a auricular hematoma #mildly elevated carboxyhemoglobin doubt CO poisoning #Internal capsule hypodensities seen on head ct -suspect related to hypoperfusion -consider brain mri if mentation not improving Diet - regular dc once cpk is <5000 with ent followup Subjective: no new complaints. continues to have left hip pain (severe) Objective: Vital Signs Temp Pulse Resp BP Pulse Ox 37.1 C 65 18 109/62 95 11/19/16 11:34 11/19/16 11:34 11/19/16 11:34 11/19/16 11:34 11/19/16 11:34 Laboratory Results 11/19/16 05:17 11/19/16 05:17 11/18/16 11/19/16 11/20/16 05:59 05:59 05:59 Intake Total 750 2920 Output Total 500 650 Balance 250 2270 PT 19.1 SEC (12.0-15.0) H 11/16/16 05:40 INR 1.60 (0.83-1.16) H 11/16/16 05:40 - Physical Exam Constitutional: no apparent distress, appears nourished, not in pain Cardiovascular: regular rate and rhythym, no murmur, rub, or gallop Respiratory: no respiratory distress, no rales or rhonchi, clear to auscultation Gastrointestinal: normoactive bowel sounds, soft, non-tender abdomen, no palpable masses, No guarding, No rebound ICD10 Worksheet Patient Problems: Problems Problem Status Onset Encephalopathy acute Acute Acute hyperkalemia Acute Acute renal failure Acute Dehydration Acute Rhabdomyolysis Acute Polysubstance abuse Acute Hematoma of auricle Acute
[2016-11-19] MEDS: PATCH REMOVAL 1 EA PATCH TD SCH (22:33)
[2016-11-20] MEDS: NS 1,000 ML IV SCH ×3 (04:07→16:44)
[2016-11-20] MEDS: oxyCODONE IR 5 MG TAB PO PRN ×4 (04:07→20:31)
[2016-11-20 06:40] LABS: CK-MB INTERPRETATION NEGATIVE (NEGATIVE)
[2016-11-20 06:43] LABS: CREATINE KINASE-MB FRACTION 4.96 ng/mL (0-3.19)
[2016-11-20] MEDS: ENOXAPARIN 40 MG/0.4 ML SYR SC SCH (09:06)
[2016-11-20] MEDS: AMOXICILLIN/CLAVULANATE POT 875/125 MG TAB PO SCH ×2 (09:06→20:31)
[2016-11-20] MEDS: LIDOCAINE 5% 1 EA PATCH TD SCH (09:07)
[2016-11-20] MEDS: NICOTINE 21 MG/24 HR PATCH TD SCH (09:08)
[2016-11-20] MEDS ORDERED: LORazepam 0.5 MG TAB PO PRN (10:32)
--- NOTE | 2016-11-20 10:33 | HOSPPROG ---
Hospitalist Progress Note Assessment/Plan: #Acute toxic encephalopathy: multifactorial with drugs, sepsis. Mentation improved per family. -check MRI since mental status not improved and unternal capsule hypodensities on CT #MARIA ELENA:due to rhabdo. Cont aggressive IVFs #Severe conditioning: rec inpatient rehab #Polysubstance abuse: admits to using cocaine. Denies SI. #Anxiety/Depression: seen at by Anila Potter at [facility]; records to be faxed. His friend says he runs out of Gabapentin bc taking more than prescribed. Holding with encephal. Small PRN dose Ativan #Hepatitis: LFTs trending down #Left ear ulceration: nothing to drain. Wound care following. Evaluated by ENT #Sepsis: resolved. Possible aspiration. Day 4/5 Augmentin #Left hip pressure injury: no bony involvement on xray #Leukocytosis: resolved #Diet: regular #DVT ppx: Lovenox Disp: cont IVF, PT. Will need rehab at [place] Time spent on visit: 50 min. 15 min bedside counseling pt on treatment plan and remaining time with mother on rehab and obtaining records from [facility] Subjective: feeling very anxious Objective: Vital Signs Temp Pulse Resp BP Pulse Ox 36.8 C 66 18 101/43 L 97 11/20/16 07:39 11/20/16 07:39 11/20/16 07:39 11/20/16 07:39 11/20/16 07:39 Laboratory Results 11/19/16 05:17 11/19/16 05:17 11/19/16 11/20/16 11/21/16 05:59 05:59 05:59 Intake Total 2920 Output Total 650 Balance 2270 PT 19.1 SEC (12.0-15.0) H 11/16/16 05:40 INR 1.60 (0.83-1.16) H 11/16/16 05:40 - Physical Exam Constitutional: no apparent distress Eyes: PERRL Ears, Nose, Mouth, Throat: other (left ear pinna with ulceration, mild purulence , swelling.) Cardiovascular: regular rate and rhythym Respiratory: no respiratory distress Gastrointestinal: normoactive bowel sounds, soft, non-tender abdomen Genitourinary: no bladder fullness Skin: warm Musculoskeletal: other (left hip hematoma, mild TTP. Unstable gait when walking with PT) Neurologic: CN II-XII Intact (alert to year, not month. Knows in medical building) ICD10 Worksheet Patient Problems: Problems Problem Status Onset Acute hyperkalemia Acute Acute renal failure Acute Dehydration Acute Encephalopathy acute Acute Hematoma of auricle Acute Polysubstance abuse Acute Rhabdomyolysis Acute
[2016-11-20] MEDS: GABAPENTIN 300 MG CAP PO SCH ×2 (16:49→21:55)
[2016-11-20] MEDS ORDERED: GADOBUTROL 10 ML VIAL IVP ONE (18:08)
[2016-11-20] MEDS: PATCH REMOVAL 1 EA PATCH TD SCH (20:44)
[2016-11-21] MEDS: NS 1,000 ML IV SCH ×5 (00:01→21:48)
[2016-11-21] MEDS: oxyCODONE IR 5 MG TAB PO PRN ×5 (00:06→19:39)
[2016-11-21 05:27] LABS: HEMATOCRIT 37.2 % (40.0-51.0); HEMOGLOBIN 13.1 g/dL (13.7-17.5); MEAN CELL HEMOGLOBIN 32.8 pg (27.9-34.1); MEAN CELL HEMOGLOBIN CONCENTR. 35.2 g/dL (32.4-36.7); RED CELL DISTRIBUTION WIDTH 12.7 % (11.5-15.2)
[2016-11-21 05:39] LABS: ALANINE AMINOTRANSFERASE 923 IU/L (21-72); ALBUMIN 2.8 g/dL (3.5-5.0); ALKALINE PHOSPHATASE 57 IU/L (38-126); ANION GAP 9 mEq/L (8-16); ASPARTATE AMINOTRANSFERASE 539 IU/L (17-59); BILIRUBIN,TOTAL 0.7 mg/dL (0.1-1.4); CALCIUM 8.3 mg/dL (8.5-10.4); CARBON DIOXIDE 22 mEq/l (22-31); CHLORIDE 106 mEq/L (97-110); CREATININE 0.8 mg/dL (0.7-1.3); GLOMERULAR FILTRATION RATE > 60; GLUCOSE 97 mg/dL (70-100); POTASSIUM 3.8 mEq/L (3.5-5.2); SODIUM 137 mEq/L (134-144); TOTAL PROTEIN 5.2 g/dL (6.3-8.2)
--- NOTE | 2016-11-21 08:14 | HOSPPROG ---
Hospitalist Progress Note Assessment/Plan: Patient is a 31-year-old male who was admitted for polysubstance abuse and rhabdomyolysis. He was found down by his roommates and brought to the emergency room and was noted to be somnolent. He had not been seen for 15 hours. He was initially in the ICU and treated aggressively with IV fluids and treated for aspiration pneumonia. He had an MRI of the brain performed on 2016. This showed acute/ subacute infarcts bilateral lentiform nuclei without hemorrhage or mass effect consisted with carbon monoxide poisoning or hypotension. Today is my 1st encounter with the patient. Chart reviewed. 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 Secondary to rhabdomyolysis * rhabdomyolysis improving, will continue daily CPKs * severe deconditioning will go to inpatient rehab * polysubstance abuse urine tox screen positive for multiple substances * anxiety/depression gabapentin has been resumed, had been on high doses anxiety is worse than usual due to loss of several friends and then his father takes gabapentin 300 mg three times daily with last refill on October 24 lower dose of gabapentin 300 mg three times daily has been initiated * acute hepatitis LFTs trending down * leukocytosis resolved * plan. Will ask Neurology to further evaluate. Check CPK/ if this continues to be > 5,000/ will need IP hospital care/ will continue aggressive fluid hydration. Subjective: Bonifacio said his left hip area and left elbow are painful. Objective: Vital Signs Temp Pulse Resp BP Pulse Ox 36.8 C 60 12 121/65 H 96 11/21/16 07:59 11/21/16 07:59 11/21/16 07:59 11/21/16 07:59 11/21/16 07:59 Laboratory Results 11/21/16 04:59 11/21/16 04:59 11/20/16 11/21/16 11/22/16 05:59 05:59 05:59 Intake Total 2200 Balance 2200 PT 19.1 SEC (12.0-15.0) H 11/16/16 05:40 INR 1.60 (0.83-1.16) H 11/16/16 05:40 - Physical Exam Constitutional: no apparent distress, appears nourished Eyes: PERRL Ears, Nose, Mouth, Throat: hearing normal Cardiovascular: regular rate and rhythym Respiratory: no respiratory distress Gastrointestinal: normoactive bowel sounds Skin: warm, other (left elbow and left ear with dressings in place) Musculoskeletal: No no muscle tenderness Neurologic: AAOx3 Psychiatric: interacting appropriately, poor insight, poor memory ICD10 Worksheet Patient Problems: Problems Problem Status Onset Acute hyperkalemia Acute Acute renal failure Acute Dehydration Acute Encephalopathy acute Acute Hematoma of auricle Acute Polysubstance abuse Acute Rhabdomyolysis Acute
[2016-11-21 09:48] LABS: CK-MB INTERPRETATION NEGATIVE (NEGATIVE); CREATINE KINASE-MB FRACTION 3.19 ng/mL (0-3.19)
[2016-11-21] MEDS: GABAPENTIN 300 MG CAP PO SCH ×3 (10:28→21:18)
[2016-11-21] MEDS: AMOXICILLIN/CLAVULANATE POT 875/125 MG TAB PO SCH ×2 (10:28→21:18)
[2016-11-21] MEDS: ENOXAPARIN 40 MG/0.4 ML SYR SC SCH (10:30)
[2016-11-21] MEDS: NICOTINE 21 MG/24 HR PATCH TD SCH (10:31)
[2016-11-21] MEDS: LIDOCAINE 5% 1 EA PATCH TD SCH (10:31)
--- NOTE | 2016-11-21 12:50 | WOCRNPDOC ---
WOCRN Advanced Assessment Note - Skin Integrity Problem, Advanced Assess Left Ear Blister Dressing Type: Open to Air Skin Integrity Problem Comment: Blister has either reabsorbed or been aspirated as it is no longer present. Small brown area of tissue remains. No concerns. No need to dress this wound. Left Posterior Ear Pressure Injury Dressing Type: Open to Air Exudate Amount: None Wound Bed Color: Brown Wound Bed Constitution: Dried Exudate Skin Integrity Problem Comment: Wound was covered by tape. Due to dried exudate this wound cannot be staged. The tape was removed and area cleaned with ns and gauze. Wound bed was covered with hydrogel (radiadress) sheet and secured with tape. BLANCA Rocha in room for care. Hair was also clipped to facilitate dressing placements. Wound care will follow up next week. Left Elbow Dressing Type: Other Other Dressing Type: Hydrogel sheet (silverseal) Dressing Description: Clean/Dry, Intact Exudate Amount: Minimal Exudate Characteristic(s): Bloody Integumentary Issue Intervention: Dressing Changed Wound Edges: Attached, Not Attached (around 3 oclock) Site Odor: None Pressure Injury Stage: Stage 3 Pressure Injury Present on Admit: Yes Skin Integrity Problem Comment: Full thickness pressure injury. Area was cleaned with ns and gauze. Wound bed was covered with hydrogel (radiadress) sheet and secured with tape. BLANCA Rocha in room for care.
--- NOTE | 2016-11-21 16:04 | GCON ---
[f rep st] CONSULTATION NEUROLOGY CONSULTATION DATE OF CONSULTATION: 11/21/2016 CHIEF COMPLAINT: Abnormal MRI. BILLING INFORMATION: Seventy total minutes on floor time and reviewing the patient's medical records since admission, imaging, including MRI brain, in detail, along with literature review. We also spent this time in direct counseling with the patient and coordinating care with the primary hospitalist and Speech and Language Therapy. 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 He was found down, apparently after not being seen for around 16 hours, by his roommates. This occurred after recreational use of cocaine, benzodiazepines, opiates, and alcohol. He was found lying on his left side, and one of his roommates noted he saw him use a large quantity of Xanax the night before at 10 p.m. He is also a smoker since age 13, around 2 packs per day. When he arrived in the hospital, it was clear on laboratories that he had had an hypoxic ischemic injury diffusely with rhabdomyolysis, maximal on the left from where he was lying on that side, along with elevated liver function tests. In addition, his creatinine was 1.8 when he came in, which has normalized with medical care. He is now awake, alert, and able to participate in conversation. He has had no seizures. MRI brain shows bilateral symmetric globus pallidus region infarctions that are subacute, inconsistent with the day of admission. The patient has no history of carbon monoxide exposure that he knows of, cyanide , or other toxic abnormalities. He has no personal history of inborn error of metabolism, such as methylmalonic acidemia, and no symptoms or signs referable to that in his history. REVIEW OF SYSTEMS: A 10-point review of systems was done and only pertinent to the HPI. PAST MEDICAL HISTORY/SOCIAL HISTORY/FAMILY HISTORY/ALLERGIES/HOME MEDICATIONS: Please refer to Dr. Car's history and physical. PHYSICAL EXAMINATION: VITAL SIGNS: The patient is vitally stable with a blood pressure 121/65, temperature 36.8, respirations 12, and satting at 96%. GENERAL : He is awake and alert, but does have some cognitive slowing and scored a 17/ 30 on the MOCA exam, with problems with focus and attention. NEURO: Cranial nerve exam was normal 2 through 7. Motor exam reveals some weakness in his left arm and left leg, related to pain and rhabdomyolysis. Otherwise, his exam was unremarkable. TESTING: The patient had a carboxyhemoglobin of 2.7%, consistent with his history of smoking. IMPRESSION/PLAN: 1. Polysubstance overdose. 2. Hypoxic ischemic encephalopathy. The patient's overall clinical history and pattern of laboratory abnormalities are consistent with a polysubstance overdose. His urine toxicology was non- negative for opiates, benzodiazepines, and cocaine. He likely had subsequent hypotension, causing multiorgan dysfunction, including rhabdomyolysis from the way he was lying down, along with shock organ abnormalities. These end-organ abnormalities also include the bilateral basal ganglia infarctions. This is a classic MRI pattern seen in hypoxic ischemic encephalopathy syndromes. The patient has no history of carbon monoxide exposure that he knows of, cyanide , or other toxic abnormalities. He has no personal history of inborn error of metabolism (IEM), such as methylmalonic acidemia. If any ongoing concern regarding IEMs, he will follow up with medical genetics at the [facility] (contact information given to the patient). The patient's carboxyhemoglobin percentage is consistent with his history of smoking 2 packs per day for the last 18 years. I do recommend for precaution that he and his roommates have a carbon monoxide detector installed in their home, if they do not already have one, and make sure there are no excessive levels of carbon monoxide in the home. He is agreeable. Going forward, he will be transferred to Rehabilitation, when medically stable, and receive maximal cognitive therapy at that time. I think his prognosis is overall fair. He will likely have some cognitive deficit from the stroke, but based on his age and the restricted geography of the strokes, hopefully he will do well. I did recommend that he stop smoking to help with the recovery process. He is agreeable. He can follow up with me as an outpatient for any of the above reasons. Our contact information has been given. No further recommendations now. Plan discussed with Ms. Lopezoya from Hospital Medicine at length. We will sign off and continue to follow this very pleasant patient as needed. Please do not hesitate to call with any questions or changes in neurologic status. /[id number]/MODL MTDD
[2016-11-21] MEDS: PATCH REMOVAL 1 EA PATCH TD SCH (22:02)
[2016-11-22] MEDS: oxyCODONE IR 5 MG TAB PO PRN ×3 (00:24→12:16)
[2016-11-22] MEDS: NS 1,000 ML IV SCH ×2 (03:26→08:33)
[2016-11-22 05:04] LABS: HEMATOCRIT 38.6 % (40.0-51.0); HEMOGLOBIN 13.7 g/dL (13.7-17.5); MEAN CELL HEMOGLOBIN 32.7 pg (27.9-34.1); MEAN CELL HEMOGLOBIN CONCENTR. 35.5 g/dL (32.4-36.7); MEAN CELL VOLUME 92.1 fL (81.5-99.8); RED BLOOD CELL COUNT 4.19 10^6/uL (4.40-6.38); RED CELL DISTRIBUTION WIDTH 12.8 % (11.5-15.2)
[2016-11-22 05:16] LABS: ALANINE AMINOTRANSFERASE 781 IU/L (21-72); ALBUMIN 3.2 g/dL (3.5-5.0); ALKALINE PHOSPHATASE 52 IU/L (38-126); ANION GAP 10 mEq/L (8-16); ASPARTATE AMINOTRANSFERASE 340 IU/L (17-59); BILIRUBIN,TOTAL 0.8 mg/dL (0.1-1.4); CALCIUM 8.7 mg/dL (8.5-10.4); CARBON DIOXIDE 24 mEq/l (22-31); CHLORIDE 105 mEq/L (97-110); CREATININE 0.9 mg/dL (0.7-1.3); GLOMERULAR FILTRATION RATE > 60; GLUCOSE 87 mg/dL (70-100); POTASSIUM 4.4 mEq/L (3.5-5.2); SODIUM 139 mEq/L (134-144); TOTAL PROTEIN 5.8 g/dL (6.3-8.2)
[2016-11-22 05:32] LABS: CK-MB INTERPRETATION NEGATIVE (NEGATIVE); CREATINE KINASE-MB FRACTION 2.48 ng/mL (0-3.19)
[2016-11-22] MEDS: ENOXAPARIN 40 MG/0.4 ML SYR SC SCH (08:37)
[2016-11-22] MEDS: AMOXICILLIN/CLAVULANATE POT 875/125 MG TAB PO SCH (08:37)
[2016-11-22] MEDS: GABAPENTIN 300 MG CAP PO SCH (08:37)
[2016-11-22] MEDS: NICOTINE 21 MG/24 HR PATCH TD SCH (08:38)
[2016-11-22] MEDS: LIDOCAINE 5% 1 EA PATCH TD SCH (08:38)
--- NOTE | 2016-11-22 09:50 | PDIAF ---
- Diagnosis Diagnosis: stroke due to hypoxic ischemic encephalopathy/ rhabdomyolisis Code Status: Full Code - Medication Management Discharge Medications: Medications to Continue on Transfer Ibuprofen [Motrin (*)] 800 mg PO QID PRN 11/18/16 [Last Taken Unknown] Gabapentin [Neurontin 300 MG (*)] 300 mg PO TID cap 11/22/16 [Last Taken Unknown] LORazepam [Ativan (*)] 0.5 mg PO Q8H PRN #0 tab 11/22/16 [Last Taken Unknown] Lidocaine 5% [Lidoderm 5% Patch (*)] 1 ea TD DAILY patch 11/22/16 [Last Taken Unknown] Nicotine [Nicoderm Cq 21 mg (*)] 21 mg TD DAILY patch 11/22/16 [Last Taken Unknown] Patch Removal 1 ea TD DAILY21 patch 11/22/16 [Last Taken Unknown] oxyCODONE IR [Oxycodone Ir (*)] 5 - 10 mg PO Q4 PRN #0 tab 11/22/16 [Last Taken Unknown] Discharge Medications: Refer to the Discharge Home Medication list for PRN reason. PICC Care - Routine: N/A - Orders Services needed: Physical Therapy, Occupational Therapy, Speech Language Pathologist Diet Recommendation: no restrictions on diet Diet Texture: Regular Texture Diet Wound Care Instructions: Please follow up within 3- 4 weeks of discharge with outpatient [facility] if you continue to have issues with your wounds : You may reach them at [phone] for an appointment and continued management of your wounds. Please call them manjinder to schedule your appointment as they fill up quickly. If before that time you have any issues please follow up with your PCP. Left posterior and upper ear wound care: Change dressing every other day and as needed. Clean with ns and gauze. Skin prep viral wound. Cut a silverseal or radiadress sheet to fit wound bed and place on wound moist side down after removing blue backing (silverseal) or pink backing on radiadress. Secure with a piece of medipore tape. Additional: when you return home, should get a CO2 detector to monitor for carbon monoxide. Gabapentin dose had been 900 mg tid/ this has been decreased to 300 mg tid. you were on Acyclovir 800 mg bid/ this was not restarted during your hospital admission/ if you need suppressive therapy; recommending 400 mg bid - Labs/Radiology CPK Date: 11/24/14 (q 3 days till baseline) - Follow Up Care Current Providers and Referrals: Patient,NotPresent [Unknown] - As per Instructions
--- NOTE | 2016-11-22 09:50 | HOSPPROG ---
Hospitalist Progress Note Assessment/Plan: Patient is a 31-year-old male who was admitted for polysubstance abuse and rhabdomyolysis. He was found down by his roommates and brought to the emergency room and was noted to be somnolent. He had not been seen for 15 hours. He was initially in the ICU and treated aggressively with IV fluids and treated for aspiration pneumonia. He had an MRI of the brain performed on 2016. This showed acute/ subacute infarcts bilateral lentiform nuclei without hemorrhage or mass effect consisted with carbon monoxide poisoning or hypotension. * Acute/subacute infarcts in the bilateral lentiform nuclei due to hypoxic ischemic encephalopathy appreciate Neurology to got to IP rehab * acute encephalopathy multifactorial due to drugs, sepsis, rhabdomyolysis and concern of recent aspiration pneumonia * acute kidney injury resolved. Secondary to rhabdomyolysis * rhabdomyolysis improving, will have this monitored every few days at IP rehab * severe deconditioning will go to inpatient rehab * polysubstance abuse urine tox screen positive for multiple substances * anxiety/depression gabapentin has been resumed, had been on high doses anxiety is worse than usual due to loss of several friends and then his father takes gabapentin 300 mg three times daily with last refill on October 24 lower dose of gabapentin 300 mg three times daily has been initiated * acute hepatitis LFTs trending down * leukocytosis resolved * plan. dc to IP rehab Subjective: Bonifacio is looking forward to going to rehab. Objective: Vital Signs Temp Pulse Resp BP Pulse Ox 36.7 C 79 20 116/76 95 11/22/16 08:00 11/22/16 08:00 11/22/16 08:00 11/22/16 08:00 11/22/16 08:00 Laboratory Results 11/22/16 04:59 11/22/16 04:59 11/21/16 11/22/16 11/23/16 05:59 05:59 05:59 Intake Total 2200 4600 2596 Output Total 1 Balance 2200 4600 2595 PT 19.1 SEC (12.0-15.0) H 11/16/16 05:40 INR 1.60 (0.83-1.16) H 11/16/16 05:40 - Physical Exam Constitutional: no apparent distress, appears nourished, No not in pain (pain is better in his right thigh/hip area today) Eyes: PERRL Ears, Nose, Mouth, Throat: hearing normal Respiratory: no respiratory distress Skin: warm Musculoskeletal: generalized weakness Neurologic: other Psychiatric: interacting appropriately, poor insight, poor judgement, poor memory, other (very forgetful/ did not remember meeting me or talking with the neurologist) ICD10 Worksheet Patient Problems: Problems Problem Status Onset Acute hyperkalemia Acute Acute renal failure Acute Dehydration Acute Encephalopathy acute Acute Hematoma of auricle Acute Polysubstance abuse Acute Rhabdomyolysis Acute
[2016-11-22 12:10] VITALS: BP 115/72; PULSE 84; RESP 16; TEMP 98.7; O2SAT 98
--- NOTE | 2016-11-22 17:02 | GDS ---
[f rep st] DISCHARGE SUMMARY DISCHARGE DIAGNOSES: 1. Acute subacute infarct of the bilateral lentiform due to hypoxemic ischemic event. 2. Acute encephalopathy. 3. Acute kidney injury. 4. Rhabdomyolysis. 5. Severe deconditioning. 6. Polysubstance abuse. 7. Anxiety, depression. 8. Acute hepatitis. 9. Leukocytosis. CONSULTATIONS: 1. Dr. Neftali Stephens. 2. Dr. Abhijit Garg. 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 He was found down and was not seen for approximately 16 hours. He was then found by his roommates. He had been using cocaine, benzodiazepines, opiates and alcohol. He was found lying on his left side, and one of his roommate's saw him use a large quantity of Xanax the night before. He also has been smoking since age 13 approximately 2 packs a day. When he arrived to the hospital, he had an acute hypoxemic ischemic injury with associated rhabdomyolysis, as well as elevated liver function tests, and elevated creatinine. He was treated with IV fluids, monitored closely in the Intensive Care Unit, and was subsequently transferred to the floor. Today, he is markedly better. He will be discharged to inpatient rehabilitation for care. HOSPITAL COURSE: 1. Acute subacute infarcts in the bilateral lentiform nuclei. This is due to a hypoxemic ischemic event. He will go to rehab for further care. 2. Acute encephalopathy, slowly improving. This is due to drug sepsis rhabdomyolysis and recent aspiration pneumonia. 3. Acute kidney injury, resolved. 4. Rhabdomyolysis. His CPK has been improved steadily. This will be monitored at inpatient rehab. 5. Severe deconditioning, inpatient rehabilitation. 6. Polysubstance abuse. His urine tox screen was positive for multiple substances. He is aware that this is an issue. 7. Anxiety, depression. His gabapentin has been resumed. He had been on pretty high doses. This has been decreased to 300 mg t.i.d. 8. Acute hepatitis improvement. LFTs have continued to trend down. 9. Leukocytosis resolved. CONDITION AT DISCHARGE: Stable. Blood pressure is 116/76, O2 sats on room air 95%, respiratory rate is 20, pulse is 79, temperature 36.7 Celsius. MEDICATIONS AT DISCHARGE: Please see the EMR. DISCHARGE INSTRUCTIONS: 1. Get a carbon dioxide monitor at his home. 2. He has been on acyclovir in the past. If he needs suppressive therapy, recommending a lower dose. 3. He will get wound care as prescribed by our wound care nurse. Greater than 30 minutes discharging and coordinating his care. /[id number]/MODL MTDD
== END 2016-11-22 13:15 | DRG 91 ==
LOC: EDUNIT# → F2N 22:45 → F3E 11-17 16:29
PROVIDERS: ADMIT Student in an Organized Health Care Education/Training Program; ATTEND Internal Medicine
PROC: 09913ZZ Drainage of Left External Ear, Percutaneous Approach (ICD-10-PCS; principal; 2016-11-18)
DX: G92 Toxic encephalopathy (principal); T79.6XXA Traumatic ischemia of muscle, initial encounter; A41.9 Sepsis, unspecified organism; J69.0 Pneumonitis due to inhalation of food and vomit; I63.8 Other cerebral infarction; N17.9 Acute kidney failure, unspecified; F14.121 Cocaine abuse with intoxication with delirium; F11.121 Opioid abuse with intoxication delirium; K71.10 Toxic liver disease with hepatic necrosis, without coma; T51.0X1A Toxic effect of ethanol, accidental (unintentional), initial encounter; T40.5X1A Poisoning by cocaine, accidental (unintentional), initial encounter; T58.91XA Toxic effect of carbon monoxide from unspecified source, accidental (unintentional), initial encounter; T42.4X1A Poisoning by benzodiazepines, accidental (unintentional), initial encounter; F10.129 Alcohol abuse with intoxication, unspecified; S00.432A Contusion of left ear, initial encounter; S00.422A Blister (nonthermal) of left ear, initial encounter; S30.0XXA Contusion of lower back and pelvis, initial encounter; F17.210 Nicotine dependence, cigarettes, uncomplicated; F41.1 Generalized anxiety disorder; D72.829 Elevated white blood cell count, unspecified; V00.131A Fall from skateboard, initial encounter; Y93.51 Activity, roller skating (inline) and skateboarding; Y90.9 Presence of alcohol in blood, level not specified
CPT/HCPCS: 80305; 82947-QW; 92507-GN; 92523-GN; 96365; 97110-GO; 97116-GP; 97161-GP; 97166-GO; 97530-GO; 97532-GO; 97535-GO; A9585; G0472; G0480; J1650; J1956; J2060; J2543; J3010; J3370

== ENCOUNTER 2016-11-22 10:33 | Inpatient (IN) | payer MEDICAID ==
[2016-11-22] MEDS ORDERED: IBUPROFEN 200 MG TAB PO PRN (14:13)
[2016-11-22] MEDS ORDERED: BISACODYL 10 MG SUPP PR PRN (14:15)
[2016-11-22] MEDS: GABAPENTIN 400 MG CAP PO SCH ×2 (16:13→22:10)
--- NOTE | 2016-11-22 16:37 | GHP ---
[f rep st] HISTORY AND PHYSICAL POST ADMISSION PHYSICIAN EVALUATION AND REHABILITATION TREATMENT PLAN DATE OF ADMISSION: 11/22/2016 DATE OF EVALUATION: 11/22/2016 TIME OF EVALUATION: 1415 REFERRING FACILITY: [facility]. IMPAIRMENT GROUP: 2.1 DATE OF ONSET: 11/15/2016 REFERRING PHYSICIAN: Dr. Esquivel CONSULTING PHYSICIANS: There were consultations with Pulmonary/Critical Care, Dr. Stephens; Wound Care Nurse; ENT, MAL Trinh; and neurologist Dr. Garg. REHABILITATION DIAGNOSIS: Hypoxic ischemic encephalopathy with infarcts bilaterally to the lentiform nuclei. ETIOLOGIC DIAGNOSIS: Nontraumatic brain dysfunction. HISTORY OF PRESENT ILLNESS: This patient was admitted to [facility] after being found down. It had been approximately 16 hours since his roommates had previously seen him. He had overdosed on multiple substances. His urine toxicology screen was positive for opiates, benzodiazepines and cocaine. Additionally, he had a prescription for gabapentin , which he took for anxiety. There was no indication that there was any suicidality involved. He was diagnosed with rhabdomyolysis and associated acute renal insufficiency. His creatinine was initially 1.8. His creatine kinase was greater than the upper limit assay of 30,000. These laboratory studies improved during his stay and, on the day of discharge, his creatinine had normalized since 11/17/2016, and his creatine kinase had come down to 2781. He was noted to have persisting encephalopathy, so an MRI was obtained which showed bilateral lentiform nucleus ischemic infarctions. His hospital course was complicated by aspiration pneumonia. There were also pressure injuries to the left ear helix and antihelix, which were graded as stage 2 pressure ulcers. He was participating in therapies and was appropriate for inpatient rehabilitation. He currently is without any acute complaints. He reports his pain control is adequate with his current pain medication regimen. He requests an increase in gabapentin to his outpatient dose, as it has been effective for treating his anxiety. Other studies and labs in the hospital: There was occasional elevated white count and low platelets, but these had resolved. He had slight anemia on the day of hospital discharge with a hematocrit of 38.6; his hemoglobin was normal; his MCV was normal. Coagulation studies showed elevated PT and INR. Serum chemistries showed elevated hepatic transaminases with AST of 5422 and ALT of 3761 when he was admitted. These had improved considerably on the day of discharge to 340 and 781. Urinalysis was positive for protein, blood and urobilinogen but negative for any signs of infection. Hepatitis panel was checked and was negative. PRECAUTIONS: He is a fall risk. ACTIVE COMORBIDITIES: He has no active tier 1, tier 2, or tier 3 comorbidities. PAST MEDICAL HISTORY: Anxiety. PAST SURGICAL HISTORY: He has no history of surgeries. PRE-HOSPITAL MEDICATIONS: Gabapentin, which he reports he was taking 2600 mg q. day divided in 4 doses. ADMISSION MEDICATIONS: 1. Gabapentin 300 mg p.o. t.i.d. daily. 2. Ibuprofen. 3. Lorazepam 0.5 mg q.8 hours p.r.n. 4. Oxycodone 5 to 10 mg q.4 hours p.r.n. 5. Lidocaine transdermal. ALLERGIES: No known drug allergies. FAMILY HISTORY: Noncontributory. 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 He was living with roommates. He had polysubstance abuse recreationally, including opiates, benzodiazepines, cocaine and alcohol. REVIEW OF SYSTEMS: He reports he has pain in the left hip especially and it is adequately controlled with p.r.n. oxycodone. He would like an increase in his gabapentin for chronic anxiety. He has decreased sensation in the left lower extremity and a foot drop of the left foot. He denies fever, chills, cough, dyspnea, chest pain, palpitations, nausea, vomiting, constipation, diarrhea, dysuria, urinary frequency. Other than his leg pain, he denies joint pain or joint swelling. Otherwise, a 10-point review of systems is negative. PHYSICAL EXAM: VITAL SIGNS: Blood pressure is 110/65, heart rate is 75, respiratory rate is 18, oxygen saturation is 94% on room air. Temperature is 37.1 degrees centigrade. His current weight is not yet recorded in the chart. His weight upon admission to [facility] was 75.8 kg for a body mass index of 24. GENERAL: This is a well-nourished, well-developed man, well groomed, sitting up on the edge of the bed, wearing street clothes, cooperative and in no acute distress. He has multiple tattoos. HEENT: Extraocular movements are intact. Pupils are equal, round, and reactive to light. Mucous membranes are moist. Dentition is in good condition. He has an uncrowded airway, Mallampati class I. NECK: Supple. HEART: There is a regular rate and rhythm with no murmurs, rubs, or gallops. LUNGS: Clear to auscultation bilaterally. ABDOMEN: Soft, nontender, nondistended with normoactive bowel sounds and no hepatosplenomegaly. EXTREMITIES: There is no cyanosis or clubbing. There is mild edema to the left foot. Radial and dorsalis pedis pulses are 2+ bilaterally. NEUROLOGIC: He is alert. He is oriented x3. Cranial nerves 2-12 are grossly intact. Regarding motor strength, his hand jd edwards developer is 4 to 4+ over 5 on the left. His left upper arm extensors and flexors are 4+ over 5. Deltoid is 4/5. Left hip flexor is 4/5. Left quadriceps is 4+ over 5. Left hamstring 4/5. He has foot drop and is unable to dorsiflex his great toe. Strength on the right upper and lower extremities is 5/5. Sensation is mildly impaired to light touch on the lateral aspect of the left leg from the hip to the foot. Deep tendon reflexes are 2+ bilaterally at the biceps, patella and Achilles tendons. Plantar reflex is downgoing on the right and indeterminate on the left. He is able to arise from seated with no assistance. He demonstrates gait with footdrop on the left lower extremity, needing to elevate the left hip in order to allow forward swing. He does not show loss of balance. CURRENT LEVEL OF FUNCTION: Per the preadmission screen: Regarding diet, feeding, and swallowing he was on a regular diet. Grooming was accomplished with contact guard and voice cues. Toileting required standby assistance. He was continent of bowel and bladder, and able to use a hand-held urinal. Bed mobility was accomplished with standby assistance. Transfers were done with contact guard to standby assist to minimal assist using a front-wheeled walker. His balance was accomplished with contact guard to minimal assist. Endurance was good. He was noted to have a low cognitive endurance. Regarding gait, he was able to ambulate without an assistive device with moderate assist and voice cues. Left footdrop was noted. He was able to ambulate 200 feet with a front- wheeled walker and minimal assist. Regarding communication, he was noted to be perseverative. Regarding cognition, he was noted to have moderate cognitive impairment in attention and executive function and he was noted to have decreased insight into his deficits. IMPRESSION: This patient is a 31-year-old man with history of polysubstance abuse, who overdosed on multiple medications, was down possibly for as long as 16 hours and suffered rhabdomyolysis, left ear stage 2 pressure injury, and bilateral lentiform nucleus cerebrovascular accident, likely due to hypoxic/ ischemic event. He was encephalopathic in the hospital, but has had considerable recovery in his cognitive function. He continues to have functional deficits with weakness in the left upper and lower extremities and gait abnormality. Additionally, he has loss of sensation in the lateral aspect of the left lower extremity. He is appropriate for inpatient rehabilitation where he will benefit from physical and occupational therapy to optimize his mobility and activities of daily living and speech and language pathology for cognition. He needs nursing care regarding fall risk, wound care, bowel and bladder, and medication administration. He needs the care of a physician to ensure that he is recovering from acute renal failure and rhabdomyolysis. He will benefit from the efforts of Social Work regarding his history of polysubstance abuse. His goal is to complete rehabilitation and then go home with outpatient services as needed. 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 For a safe discharge, it is anticipated that he will achieve independence with grooming, dressing, bathing, bed mobility and transfers. He may have modified independence for ambulation with the least restrictive device on level and unlevel surfaces. He will need to demonstrate improved insight into his deficits and use compensatory strategies appropriately. It is likely he will continue to require assistance for shopping and household management. He will have therapy with Physical Therapy, Occupational Therapy, and Speech and Language Pathology for 60 minutes per day for each discipline on 5 to 7 days of the week. His expected duration of stay is 5 to 7 days. It is anticipated that, upon discharge, he will continue to benefit from outpatient therapy with Speech and Language Pathology. ASSESSMENT AND PLAN: 1. Gait and balance impairment with left hemiparesis, status post hypoxic ischemic event and bilateral lentiform nucleus cerebrovascular accident. PT and OT to optimize mobility and activities of daily living. 2. Encephalopathy and cognitive impairment. Assessment and treatment per Speech and Language Pathology. He will have a low stimulation environment and adequate sleep will be encouraged. 3. Rhabdomyolysis, recovering. Will monitor labs to ensure that CPK and renal function return fully to normal. 4. Pressure injury to the left ear. Will continue wound care orders that were initiated in the hospital. 5. Pain management has been effective with oxycodone and ibuprofen and these will be continued. He reports that the lidocaine patch does not stay on and he would just as soon not use it, so it will be discontinued. 6. Tobacco dependence syndrome. Encouraged smoking cessation. He reports he has no urge to smoke and, at present, does not wish to continue the nicotine patch. Observe for recurrent urge to smoke and will have low threshold to reinstitute nicotine patch. 7. Polysubstance abuse to be addressed by Social Work with consideration for outpatient treatment after he discharges. 8. Anxiety. Will increase the dose of gabapentin towards his home dose. Will change to 800 mg t.i.d. and observe for anxiety. Consider initiation of SSRI. 9. Prophylaxis. He has left-sided weakness, but no anali hemiplegia, and his mobility appears to be good. He is young and not obese. He is at low risk for DVT and no pharmacologic prophylaxis will be initiated. /[id number]/MODL MTDD
[2016-11-22] MEDS: oxyCODONE IR 5 MG TAB PO PRN ×3 (18:07→22:15)
[2016-11-22] MEDS: SENNOSIDES 1 TAB PO PRN (18:07)
[2016-11-22] MEDS: LORazepam 0.5 MG TAB PO PRN (22:12)
[2016-11-23] MEDS: oxyCODONE IR 5 MG TAB PO PRN ×5 (05:48→21:55)
[2016-11-23] MEDS: GABAPENTIN 400 MG CAP PO SCH ×3 (08:17→21:55)
[2016-11-23] MEDS: SENNOSIDES 1 TAB PO PRN (08:18)
--- NOTE | 2016-11-23 12:36 | SOAPPROG ---
SOAP Progress Note Assessment/Plan: Assessment: 31 yo M p/w acute CVA to lentiform nuclei bilaterally s/p ischemic event in setting of polysubstance overdose and resultant rhabdomyolysis Plan: 1. Gait and balance impairment with left hemiparesis, status post hypoxic ischemic event and bilateral lentiform nucleus cerebrovascular accident. - PT and OT to optimize mobility and activities of daily living. 2. Encephalopathy and cognitive impairment. Mild persistence w/ lethargy during exam - Assessment and treatment per Speech and Language Pathology. - He will have a low stimulation environment and adequate sleep will be encouraged. 3. Rhabdomyolysis, recovering. 2/2 polysubs OD and prolonged downtime, s/p IVF at [facility] - Reviewed outside record including H&P by Megan Ortiz 11/22/16, reporting rhabdo tx w/ IVF and CPK 2780 at [place], Cr 0.9 - Will repeat CMP and CPK tomorrow AM. - L hip w/ stage I pressure injury, soft tissue edema, tenderness, no fxr on x- ray at [facility] - adjust NSAID to longer acting (naproxen 440mg bid) scheduled for next couple days since his pain this AM was likely from under-medicating o/n while sleeping , and I would prefer to use longer acting non-narcotic options rather than uptitrating his oxy IR at this time - cont icing effected area 4. Pressure injury to the left ear. 2/2 downtime - Will continue wound care orders that were initiated in the hospital. 5. Tobacco dependence syndrome. - Encouraged smoking cessation. - He reports he has no urge to smoke and, at present, does not wish to continue the nicotine patch. - Observe for recurrent urge to smoke and will have low threshold to reinstitute nicotine patch. 6. Polysubstance abuse to be addressed by Social Work with consideration for outpatient treatment after he discharges. 7. Anxiety. Chronic, acute exacerbation w/ situation - Adjusted to felicitas 800 mg t.i.d. and observe for anxiety. - Consider initiation of SSRI. Diet. Regular Prophylaxis.~ He has left-sided weakness, but no anali hemiplegia, and his mobility appears to be good.~ He is young and not obese.~ He is at low risk for DVT and no pharmacologic prophylaxis will be initiated. 11/23/16 12:31 11/23/16 12:36 Subjective: pain this AM in L hip, did not receive pain Rx o/n, has received oxy IR this AM , moving bowels, urinating well Objective: Vital Signs Temp Pulse Resp BP Pulse Ox 36.9 C 65 16 114/72 95 11/23/16 07:06 11/23/16 07:06 11/23/16 07:06 11/23/16 07:06 11/23/16 07:06 11/22/16 11/23/16 11/24/16 05:59 05:59 05:59 Intake Total 1180 600 Balance 1180 600 Physical Exam - Physical Exam General Appearance: alert, no apparent distress, other (lethargic but arousable , somewhat sleepy during exam), No anxiety Respiratory: lungs clear, normal breath sounds, No respiratory distress, No crackles, No rales, No rhonchi, No wheezing Cardiac/Chest: regular rate, rhythm, No edema, No systolic murmur, No irregularly irregular Abdomen: normal bowel sounds, non-tender, soft, No distended, No guarding Skin: other (soft tissue edema L hip, blanchable, mildly tender patch approx 15cm diameter left lateral hip) Extremities: other (mild pain w/ active flexion L hip, as well as with abduction , no pain w/ internal/external rotation, no pain at knee w/ flexion) Neuro/Psych: other (CN II-XII intact, motor 4/5 LLE and limited by pain, sensation intact bilat, cooperative and following commands, concentration 7/7) ICD10 Worksheet Patient Problems: Problems Problem Status Onset Acute hyperkalemia Acute Acute renal failure Acute Dehydration Acute Encephalopathy acute Acute Hematoma of auricle Acute Polysubstance abuse Acute Rhabdomyolysis Acute
[2016-11-23] MEDS: NAPROXEN SODIUM 220 MG TAB PO SCH ×2 (13:07→21:55)
[2016-11-23] MEDS: POLYETHYLENE GLYCOL 3350 17 GM PKT PO PRN (17:22)
[2016-11-23] MEDS: LORazepam 0.5 MG TAB PO PRN (21:55)
[2016-11-24] MEDS: oxyCODONE IR 5 MG TAB PO PRN ×4 (06:09→18:25)
[2016-11-24] MEDS: POLYETHYLENE GLYCOL 3350 17 GM PKT PO PRN (07:32)
[2016-11-24] MEDS: NAPROXEN SODIUM 220 MG TAB PO SCH ×2 (07:33→20:09)
[2016-11-24] MEDS: SENNOSIDES 1 TAB PO PRN (07:33)
[2016-11-24] MEDS: GABAPENTIN 400 MG CAP PO SCH ×3 (07:33→20:07)
[2016-11-24 09:46] LABS: ALANINE AMINOTRANSFERASE 505 IU/L (21-72); ALBUMIN 3.4 g/dL (3.5-5.0); ALKALINE PHOSPHATASE 52 IU/L (38-126); ANION GAP 11 mEq/L (8-16); ASPARTATE AMINOTRANSFERASE 128 IU/L (17-59); BILIRUBIN,TOTAL 0.6 mg/dL (0.1-1.4); CALCIUM 8.7 mg/dL (8.5-10.4); CARBON DIOXIDE 23 mEq/l (22-31); CHLORIDE 103 mEq/L (97-110); CREATININE 0.9 mg/dL (0.7-1.3); GLOMERULAR FILTRATION RATE > 60; GLUCOSE 71 mg/dL (70-100); POTASSIUM 4.2 mEq/L (3.5-5.2); SODIUM 137 mEq/L (134-144); TOTAL PROTEIN 6.1 g/dL (6.3-8.2)
[2016-11-24 10:03] LABS: CK-MB INTERPRETATION NEGATIVE (NEGATIVE)
[2016-11-24] MEDS: POLYETHYLENE GLYCOL 3350 17 GM PKT PO SCH (12:37)
--- NOTE | 2016-11-24 12:50 | SOAPPROG ---
SOAP Progress Note Assessment/Plan: Assessment: 31 yo M p/w acute CVA to lentiform nuclei bilaterally s/p ischemic event in setting of polysubstance overdose and resultant rhabdomyolysis Plan: 1. Gait and balance impairment with left hemiparesis, status post hypoxic ischemic event and bilateral lentiform nucleus cerebrovascular accident. - using trekking pole, has ongoing L foot drop, 4/5 LLE motor - PT and OT to optimize mobility and activities of daily living. - encouraged IS - patient would like to discuss disability options w/ SW/case mgmt tomorrow 2. Encephalopathy and cognitive impairment. Improving today, better sleep o/n - Assessment and treatment per Speech and Language Pathology. - He will have a low stimulation environment and adequate sleep will be encouraged. 3. Rhabdomyolysis, recovering. 2/2 polysubs OD and prolonged downtime, s/p IVF at [facility] - repeat CPK downtrending, no indication for ongoing IVF - L hip w/ stage I pressure injury, soft tissue edema, tenderness, no fxr on x- ray at [facility] - adjusted NSAID to longer acting (naproxen 440mg bid) scheduled for next couple days - d/w patient using a single dose of oxy IR in middle of night if he awakens, to prevent upsurge of pain early in AM - cont icing effected area 4. Pressure injury to the left ear. 2/2 downtime - Will continue wound care orders that were initiated in the hospital. 5. Tobacco dependence syndrome. - Encouraged smoking cessation. - He reports he has no urge to smoke and, at present, does not wish to continue the nicotine patch. - OK to use smokeless tobacco (albeit cessation encouraged), nursing order placed 6. Polysubstance abuse to be addressed by Social Work with consideration for outpatient treatment after he discharges. 7. Anxiety. Chronic, acute exacerbation w/ situation - Con felicitas 800 mg t.i.d. and observe for anxiety. - Consider initiation of SSRI. 8. Transaminitis. Hep panel neg, likely 2/2 liver injury from acute illness, enzymes downtrending 9. Constipation. Adjusted senokot to scheduled and miralax to mariely daily, plus PRN - suppository or mag citrate tomorrow if no BM Diet. Regular Prophylaxis. He has left-sided weakness, but no anali hemiplegia, and his mobility appears to be good. He is young and not obese. He is at low risk for DVT and no pharmacologic prophylaxis will be initiated. 11/24/16 12:50 Subjective: reports he has not had BM today, awoke 10/21 pain this AM Objective: Vital Signs Temp Pulse Resp BP Pulse Ox 36.6 C 60 16 112/64 98 11/24/16 06:43 11/24/16 06:43 11/24/16 06:43 11/24/16 06:43 11/24/16 06:43 Laboratory Results 11/24/16 06:10 11/23/16 11/24/16 11/25/16 05:59 05:59 05:59 Intake Total 1180 1920 720 Output Total 1 Balance 1180 1920 719 Physical Exam - Physical Exam General Appearance: alert, no apparent distress, No obtunded, No anxiety Respiratory: lungs clear, normal breath sounds, No crackles, No rales, No wheezing Cardiac/Chest: regular rate, rhythm, No edema, No tachycardia, No systolic murmur, No irregularly irregular Abdomen: non-tender, soft, other (hypoactive bowel sounds), No distended, No guarding Skin: other (blanching erythematous patch approx 15cm diameter L hip w/ surrounding soft tissue edema, mildly tender, no induration/fluctuance) Extremities: other (full ROM L hip w/ mild tenderness on active flexion) Neuro/Psych: normal mood/affect, oriented x 3, other (CN II-XII intact/tested, motor 4/5 LLE w/ paresthesia, 5/5 all other limbs, cooperative and follows commands) ICD10 Worksheet Patient Problems: Problems Problem Status Onset Encephalopathy acute Acute Acute hyperkalemia Acute Acute renal failure Acute Dehydration Acute Rhabdomyolysis Acute Polysubstance abuse Acute Hematoma of auricle Acute
[2016-11-24] MEDS: SENNOSIDES 1 TAB PO SCH ×2 (17:05→20:08)
[2016-11-24] MEDS: LORazepam 0.5 MG TAB PO PRN (21:17)
[2016-11-25] MEDS: oxyCODONE IR 5 MG TAB PO PRN ×5 (00:21→21:25)
[2016-11-25] MEDS: SENNOSIDES 1 TAB PO SCH ×3 (09:04→21:04)
[2016-11-25] MEDS: POLYETHYLENE GLYCOL 3350 17 GM PKT PO SCH (09:04)
[2016-11-25] MEDS: NAPROXEN SODIUM 220 MG TAB PO SCH ×2 (09:04→21:04)
[2016-11-25] MEDS: GABAPENTIN 400 MG CAP PO SCH ×3 (09:04→21:04)
--- NOTE | 2016-11-25 12:41 | SOAPPROG ---
SOAP Progress Note Assessment/Plan: Assessment: * Gait and balance impairment with left hemiparesis. Unclear contribution of hypoxic ischemic event and bilateral lentiform nucleus cerebrovascular accident versus peripheral compression neuropathy. Initial functional independence measure 105. He is independent in his room and on the unit. He has ambulated 300 feet with a trekking pole. He climbed 12 steps with 1 rail with standby assist. He has left foot drop and hip weakness which per PT are more likely peripheral than central in etiology. His independent with his ADLs. 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 Continue PT and OT to optimize mobility and activities of daily living. * Cognition likely at baseline per Speech and Language Pathology. Mild deficits to attention executive function, judgment/safety, memory, and problem solving/reasoning. * Rhabdomyolysis, recovering. No need for continued lab draws. * Pressure injury to the left ear. Continue wound care orders that were initiated in the hospital. * Pain management. Has been using oxycodone 40-50 mg per day. Pain is improved with the addition of scheduled naproxen. * Tobacco dependence syndrome. Encouraged smoking cessation. Has urge to smoke but does not wish to continue the nicotine patch. * Polysubstance abuse to be addressed by Social Work. He is resistant to engaging in discussion about this issue. * Anxiety. Continue gabapentin 800 mg p.o. three times daily. * Prophylaxis. He has left-sided weakness, but no anali hemiplegia, and his mobility appears to be good. He is young and not obese. He is at low risk for DVT and no pharmacologic prophylaxis will be initiated. Attended staffing, 15 minutes. Discussed with case management, nursing, pharmacist, PT, OT, CODING EDUCATOR. Plans to discharge home to his apartment which she shares with roommates. Discharge date set for 11/28/2016. He will have outpatient PT and OT. Primary care provider follow-up is set for 12/04/2016. 11/25/16 13:19 Subjective: Pain control improved with the addition of naproxen on 11/23/2016 bowels moving. Denies cough, dyspnea, fevers, chills. Notes some improvement in movement of the left great toe. Objective: Vital Signs Temp Pulse Resp BP Pulse Ox 36.9 C 62 16 118/65 96 11/25/16 08:00 11/25/16 08:00 11/25/16 08:00 11/25/16 08:00 11/25/16 08:00 Laboratory Results 11/24/16 06:10 11/24/16 11/25/16 11/26/16 05:59 05:59 05:59 Intake Total 1920 1520 Output Total 1 Balance 1920 1519 - Time Spent With Patient Time Spent With Patient: Greater than 35 minutes floor time today, including more than 50% of time in coordination of care during staffing meeting, and counseling patient. Physical Exam - Physical Exam General Appearance: WD/WN, alert, no apparent distress Respiratory: No respiratory distress, No accessory muscle use Cardiac/Chest: No edema Skin: normal color, warm/dry, other (Superior left helix with approximately 1 x 1/2 cm area of ulceration, bleeds with dressing removal. Otherwise with granulation tissue. No erythema swelling or purulence. 1.5 cm shallow ulceration left lateral elbow with granulation tissue.) Neuro/Psych: alert, normal mood/affect, oriented x 3, motor weakness (EHL weak on L with inability to fully extend great toe. L shoulder ROM limited above horizontal.) ICD10 Worksheet Patient Problems: Problems Problem Status Onset Acute hyperkalemia Acute Acute renal failure Acute Dehydration Acute Encephalopathy acute Acute Hematoma of auricle Acute Polysubstance abuse Acute Rhabdomyolysis Acute
[2016-11-25] MEDS: LORazepam 0.5 MG TAB PO PRN (21:25)
[2016-11-26] MEDS: POLYETHYLENE GLYCOL 3350 17 GM PKT PO SCH (07:25)
[2016-11-26] MEDS: oxyCODONE IR 5 MG TAB PO PRN ×4 (07:25→20:18)
[2016-11-26] MEDS: NAPROXEN SODIUM 220 MG TAB PO SCH ×2 (07:26→20:17)
[2016-11-26] MEDS: SENNOSIDES 1 TAB PO SCH ×3 (07:26→20:18)
[2016-11-26] MEDS: GABAPENTIN 400 MG CAP PO SCH ×3 (07:26→20:17)
--- NOTE | 2016-11-26 15:40 | SOAPPROG ---
SOAP Progress Note Assessment/Plan: Assessment: * Gait and balance impairment with left hemiparesis. Unclear contribution of hypoxic ischemic event and bilateral lentiform nucleus cerebrovascular accident versus peripheral compression neuropathy. Initial functional independence measure 105. He is independent in his room and on the unit. He has ambulated 300 feet with a trekking pole. He climbed 12 steps with 1 rail with standby assist. He has left foot drop and hip weakness which per PT are more likely peripheral than central in etiology. His independent with his ADLs. 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 Continue PT and OT to optimize mobility and activities of daily living. * Cognition likely at baseline per Speech and Language Pathology. Mild deficits to attention executive function, judgment/safety, memory, and problem solving/reasoning. * Left calf/popliteal tenderness. Stat ultrasound to rule out DVT. * Rhabdomyolysis, recovering. No need for continued lab draws. * Pressure injury to the left ear. Continue wound care orders that were initiated in the hospital. * Pain management. Has been using oxycodone 40-50 mg per day. Pain is improved with the addition of scheduled naproxen. Rule out DVT as contributor to left leg pain. * Tobacco dependence syndrome. Encouraged smoking cessation. Has urge to smoke but does not wish to continue the nicotine patch. * Polysubstance abuse to be addressed by Social Work. He is resistant to engaging in discussion about this issue. * Anxiety. Continue gabapentin 800 mg p.o. three times daily. * Prophylaxis. He has left-sided weakness, but no anali hemiplegia, and his mobility appears to be good. He is young and not obese. He is at low risk for DVT and no pharmacologic prophylaxis will be initiated. Plans to discharge home to his apartment which she shares with roommates. Discharge date set for 11/28/2016. He will have outpatient PT and OT. Primary care provider follow-up is set for 12/04/2016. 11/26/16 15:38 Subjective: Complains of tenderness in the left hip and also on the left calf and behind the left knee. No cough or dyspnea. No fevers or chills. Still has left foot drop and wonders how long it will last and what his prognosis for recovery is. Objective: Vital Signs Temp Pulse Resp BP Pulse Ox 36.7 C 100 16 111/78 96 11/26/16 08:00 11/26/16 08:00 11/26/16 08:00 11/26/16 08:00 11/26/16 08:00 Laboratory Results 11/24/16 06:10 11/25/16 11/26/16 11/27/16 05:59 05:59 05:59 Intake Total 1520 Output Total 1 Balance 1519 Physical Exam - Physical Exam General Appearance: WD/WN, alert, no apparent distress Respiratory: No respiratory distress, No accessory muscle use Skin: normal color, warm/dry Extremities: calf tenderness (Left calf) Neuro/Psych: alert, normal mood/affect, oriented x 3, motor weakness (Absent dorsiflexion L ankle. Dorsiflexion to horizontal but not above and left great toe.) ICD10 Worksheet Patient Problems: Problems Problem Status Onset Acute hyperkalemia Acute Acute renal failure Acute Dehydration Acute Encephalopathy acute Acute Hematoma of auricle Acute Polysubstance abuse Acute Rhabdomyolysis Acute
[2016-11-26] MEDS: LORazepam 0.5 MG TAB PO PRN (20:19)
--- NOTE | 2016-11-26 23:06 | PDOREHIP ---
Admission [facility] - Admission - 3 Day Assessment Period Admission Date/Day 1: 11/22/16 Day 2: 11/23/16 Day 3: 11/24/16 - Active Diagnoses Comorbidities and Co-existing Conditions at Admission: 24654. None of the Above - Skin Conditions Unhealed Pressure Ulcer (1 or more/Stage 1 or >)-Admission: 1. Yes # Stage 2 Pressure Ulcers-Admission: 1 (Left ear) Discharge [facility] - Discharge - 3 Day Assessment Period 2 Days Prior to Anticipated Discharge Date: 11/26/16 1 Day Prior to Anticipated Discharge Date: 11/27/16 Anticipated Discharge Date: 11/28/16
[2016-11-27] MEDS: oxyCODONE IR 5 MG TAB PO PRN ×5 (03:30→20:11)
[2016-11-27] MEDS: POLYETHYLENE GLYCOL 3350 17 GM PKT PO SCH (07:56)
[2016-11-27] MEDS: GABAPENTIN 400 MG CAP PO SCH ×3 (07:56→20:12)
[2016-11-27] MEDS: NAPROXEN SODIUM 220 MG TAB PO SCH ×2 (07:56→20:11)
[2016-11-27] MEDS: SENNOSIDES 1 TAB PO SCH ×3 (07:57→20:12)
--- NOTE | 2016-11-27 11:40 | SOAPPROG ---
SOAP Progress Note Assessment/Plan: Assessment: * Gait and balance impairment with left hemiparesis. Unclear contribution of hypoxic ischemic event and bilateral lentiform nucleus cerebrovascular accident versus peripheral compression neuropathy. Initial functional independence measure 105. He is independent in his room and on the unit. He has ambulated 300 feet with a trekking pole. He climbed 12 steps with 1 rail with standby assist. He has left foot drop and hip weakness which per PT are more likely peripheral than central in etiology. His independent with his ADLs. 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 Continue PT and OT to optimize mobility and activities of daily living. * Cognition likely at baseline per Speech and Language Pathology. Mild deficits to attention executive function, judgment/safety, memory, and problem solving/reasoning. * Left calf/popliteal tenderness. DVT ruled out with Doppler ultrasound 2016. * Left hip and upper leg pain. Possible greater trochanteric bursitis +/-IT band syndrome. Stretching and modalities per PT. * Rhabdomyolysis, recovering. No need for continued lab draws. * Pressure injury to the left ear. Continue wound care orders that were initiated in the hospital. * Pain management. Has been using oxycodone 40-50 mg per day. Pain is improved with the addition of scheduled naproxen. * Tobacco dependence syndrome. Encouraged smoking cessation. Has urge to smoke but does not wish to continue the nicotine patch. * Polysubstance abuse to be addressed by Social Work. He is resistant to engaging in discussion about this issue. * Anxiety. Continue gabapentin 800 mg p.o. three times daily. * Prophylaxis. He has left-sided weakness, but no anali hemiplegia, and his mobility appears to be good. He is young and not obese. He is at low risk for DVT and no pharmacologic prophylaxis will be initiated. Plans to discharge home to his apartment which she shares with roommates. Discharge date set for 11/28/2016. He will have outpatient PT and OT. Primary care provider follow-up is set for 12/04/2016. 11/27/16 11:35 Subjective: Reports continued leg pain, now centered over the left hip and lateral upper leg. Pain awakens him from sleep. Worst in the morning when he is 1st getting up, improved during the day. Tolerating weight-bearing. Denies cough, dyspnea , fevers, chills. Objective: Vital Signs Temp Pulse Resp BP Pulse Ox 36.3 C 55 L 14 114/61 97 11/27/16 07:54 11/27/16 07:54 11/27/16 07:54 11/27/16 07:54 11/27/16 07:54 Laboratory Results 11/24/16 06:10 11/26/16 11/27/16 11/28/16 05:59 05:59 05:59 Intake Total 640 Balance 640 Physical Exam - Physical Exam General Appearance: WD/WN, alert, no apparent distress Respiratory: No respiratory distress, No accessory muscle use Skin: normal color, warm/dry Extremities: other (Tender over the left greater trochanter.) Neuro/Psych: no motor/sensory deficits, alert, normal mood/affect, oriented x 3 ICD10 Worksheet Patient Problems: Problems Problem Status Onset Acute hyperkalemia Acute Acute renal failure Acute Dehydration Acute Encephalopathy acute Acute Hematoma of auricle Acute Polysubstance abuse Acute Rhabdomyolysis Acute
[2016-11-27 19:13] VITALS: TEMP 98.8
[2016-11-27] MEDS: LORazepam 0.5 MG TAB PO PRN (20:11)
[2016-11-28] MEDS: oxyCODONE IR 5 MG TAB PO PRN ×3 (01:14→12:06)
[2016-11-28] MEDS: GABAPENTIN 400 MG CAP PO SCH (08:08)
[2016-11-28] MEDS: POLYETHYLENE GLYCOL 3350 17 GM PKT PO SCH (08:09)
[2016-11-28] MEDS: SENNOSIDES 1 TAB PO SCH (08:09)
[2016-11-28] MEDS: NAPROXEN SODIUM 220 MG TAB PO SCH (08:09)
[2016-11-28 08:13] VITALS: BP 116/76; PULSE 76; RESP 14; O2SAT 96
--- NOTE | 2016-11-28 16:28 | PDDCSUM ---
Discharge Summary Discharge Summary: Name: Kevin Fong Admission date: 11/22/2016 Discharge date: 11/28/2016 Discharging physician: Rashawn Walton MD Admitting diagnosis: 2.1 nontraumatic brain dysfunction, hypoxic ischemic encephalopathy with infarcts bilaterally to the lentiform nuclei Discharge diagnosis: Same Comorbid diagnoses: Impairments in mobility, self-care, and cognition, left hip and upper leg pain possibly trochanteric bursitis versus IT band syndrome, rhabdomyolysis, pressure injury to the left ear, tobacco dependence syndrome, polysubstance abuse, anxiety, chronic pain management Consultations: physical therapy, occupational therapy, speech language pathology , social work Procedures: Lower extremity venous Doppler 11/26/2016 negative for DVT. Reason for admission: Please see the history and physical by Dr. Haroon Keenan dated 11/22/2016 for full details, but briefly the patient was found down and admitted to [facility] and found to have overdosed on multiple substances. He was treated acutely for rhabdomyolysis and acute renal insufficiency with a maximum creatinine of 1.8, which eventually resolved. He had persistent encephalopathy and MRI showed bilateral lentiform nucleus ischemic infarcts. His hospital course was also complicated by aspiration pneumonia and pressure injuries in the left ear. During his recovery course he was found to have significant impairments in mobility, self- care, and cognition and was found to be appropriate for inpatient rehabilitation , admitted on 11/22/2016. Rehabilitation course: His overall rehabilitation course went well. They felt that he likely had some cognitive impairment at baseline but continue to work with speech language pathology. His initial functional independence measure was 105, and was discharged as independent on the unit. He will continue therapies as an outpatient. He also was noted to have left calf tenderness and a DVT was ruled out with Doppler ultrasound on 11/26/2016. He continued to have some left hip pain and upper leg pain and was thought to be related to trochanteric bursitis or ITB syndrome his rhabdomyolysis recovered, and he continued wound dressings on his left ear. He did not wish to quit smoking. He was resistant to engage in a discussion about polysubstance abuse. Discharge plan: Discharging home to self-care with outpatient therapies. He had no restrictions on his diet. Condition: He was functioning independently on the unit, still has mild deficits in attention and executive function as well as judgment and memory and problem solving and reasoning, felt to be at baseline by speech therapy. Additionally, he will be discharging with a prescription for an ankle-foot orthosis on the left foot because of continued footdrop. Medications at discharge: Gabapentin 800 mg p.o. three times daily Naproxen 440 mg p. o. twice daily Polyethylene glycol 17 g p. o. daily Senna 1 tab p.o. three times daily Lorazepam 0.5 mg p.o. q.8 hours, quantity 15 tablets Oxycodone IR 5-10 mg p.o. q.4 hours p.r.n. for pain, 50 tabs Pending studies: None Issues to be addressed at follow-up: He will have outpatient PT and OT, follow- up was with his primary care physician on 12/04/2016, possibly earlier for medication refills. Follow up: Follow up as above with primary care physician in therapies. Today on discharge I answered any questions that he had remaining and coordinated the prescription for a ankle-foot orthosis that should be very helpful for his circumduction gait. I also prescribed medications and encouraged him to follow-up with therapies as per primary care physician. On discharge, his vitals were 132/92, pulse of 56, saturating 97% on room air. In general he is normally distress sitting in the hospital room on his bed. Eyes were anicteric, ears nose mouth throat moist mucous membranes with normal dentition, his heart was regular rate and rhythm comma breathing comfortably on room air without accessory muscle use. He had a left-sided foot drop, less than 3 ankle plantar flexion, less than 1 ankle dorsiflexion, medial lateral stability was absent. He had no skin rashes or skin breakdown. No contractures noted. He was appropriate, pleasant, cooperative and he had a normal mood affect and thought content. Left ear was dressed. A total of 45 minutes was spent on the discharge of the patient today
== END 2016-11-28 13:27 | disposition home or self-care (01) | DRG 57 ==
LOC: BREH 13:54
PROVIDERS: ADMIT Internal Medicine; ATTEND Physical Medicine & Rehabilitation
PROC: F08Z7ZZ Vocational Activities and Functional Community or Work Reintegration Skills Treatment (ICD-10-PCS; principal; 2016-11-22)
PROC: F07M3ZZ Motor Function Treatment of Musculoskeletal System - Whole Body (ICD-10-PCS; principal; 2016-11-22)
PROC: F0636ZZ Communicative/Cognitive Integration Skills Treatment of Neurological System - Whole Body (ICD-10-PCS; principal; 2016-11-22)
DX: I69.354 Hemiplegia and hemiparesis following cerebral infarction affecting left non-dominant side (principal); I69.314 Frontal lobe and executive function deficit following cerebral infarction; I69.311 Memory deficit following cerebral infarction; G93.1 Anoxic brain damage, not elsewhere classified; R26.9 Unspecified abnormalities of gait and mobility; L89.812 Pressure ulcer of head, stage 2; F41.9 Anxiety disorder, unspecified; M25.552 Pain in left hip; M79.662 Pain in left lower leg; M79.652 Pain in left thigh; F11.10 Opioid abuse, uncomplicated; F14.10 Cocaine abuse, uncomplicated; F10.10 Alcohol abuse, uncomplicated; F17.210 Nicotine dependence, cigarettes, uncomplicated; K59.00 Constipation, unspecified
CPT/HCPCS: 92507-GN; 92522-GN; 97110-GO; 97110-GP; 97112-GP; 97116-GP; 97140-GO; 97162-GP; 97166-GO; 97530-GO; 97535-GO

== ENCOUNTER 2016-12-04 15:04 | Emergency (ER) | payer MEDICAID ==
[2016-12-04 15:11] VITALS: BP 138/75; PULSE 98; RESP 18; TEMP 98.2; O2SAT 97
--- NOTE | 2016-12-04 16:05 | EDPHY ---
H & P Stated Complaint: pt is out of pain meds/l leg pain post cva Source: Patient Exam Limitations: No limitations - Personal History Current Tetanus/Diphtheria Vaccine: Yes Tetanus Vaccine Date: 2012 - Medical/Surgical History Hx Asthma: No Hx Chronic Respiratory Disease: No Hx Diabetes: No Hx Cardiac Disease: No Hx Renal Disease: No Hx Cirrhosis: No Hx Alcoholism: No Hx HIV/AIDS: No Hx Splenectomy or Spleen Trauma: No Other PMH: collar bone age 16, rt arm broken, rt leg fracture,Nov 14 2016 cerebraql vascular accident rhabdo, encephalopathy - Social History Smoking Status: Smoker current status UNK HPI/ROS: CHIEF COMPLAINT: Leg pain, requesting refill of oxycodone HISTORY OF PRESENT ILLNESS: Patient reports left lower extremity pain over the past week. He says he was here for a seizure versus stroke. During the episode he injured his left lower extremity. He was worked up for this pain with No definitive diagnosis. He was prescribed oxycodone with acetaminophen upon discharge home. This was 5 days ago. He has been taking it as prescribed. He followed up with his primary care physician earlier today, but the scheduled physician was reportedly out of town. He informs me that they declined to refill his pain medication and instructed him to come to the emergency department for refill. His pain is unchanged but severe. Worse with movement. No position of comfort. No other associated complaints or modifying factors. REVIEW OF SYSTEMS: Ten systems reviewed and are negative unless otherwise noted in the HPI PAST MEDICAL HISTORY: Reviewed. Reports recent seizure versus CVA SOCIAL HISTORY: Smoker FAMILY HISTORY: Noncontributory EXAMINATION General Appearance: Alert, no distress Head: normocephalic, atraumatic Eyes: Pupils equal and round, no conjunctival pallor or injection ENT, Mouth: Mucous membranes moist. Airway patent Neck: Normal inspection, supple. Full range of motion all planes Respiratory: No retractions or distress Cardiovascular: Regular rate and rhythm. Pulses intact distally in symmetrically. 2+ DP pulses. Gastrointestinal: Abdomen is nondistended Neurological: A&O, nonfocal, normal gait Skin: Warm and dry, no rash. No erythema or edema to lower extremities per Extremities: Generalized tenderness of the left lower extremity. No edema. No evidence of DVT. Range of motion intact. No lacerations abrasions or contusions. Psychiatric: Mood and affect normal DIFFERENTIAL DIAGNOSES: Including but not limited to chronic pain, extremity pain, narcotic dependency, narcotic abuse MDM: 4:00 p.m. Ongoing left lower extremity pain with request for oxycodone refill. No evidence of DVT or acute injury. I informed him that I will not be refilling the pain medication. He was at his primary care physician office today and they declined to refill it. He is instructed follow up with them or the paint formulator for further medication. He was very polite and respectful and states that he will do so. ED precautions discussed. SUPERVISION: This patient was independently evaluated without direct examination by the attending physician. Case was discussed with attending physician. (Noé Bustos) Constitutional: Initial Vital Signs Temperature (C) 36.8 C 12/04/16 15:09 Heart Rate 98 12/04/16 15:09 Respiratory Rate 18 12/04/16 15:09 Blood Pressure 138/75 H 12/04/16 15:09 O2 Sat (%) 97 12/04/16 15:09 O2 Delivery Mode Room Air Allergies/Adverse Reactions: No Known Allergies Allergy (Verified 12/04/16 15:09) Home Medications: Medication Instructions Recorded Gabapentin [Gabapentin 800 mg] 800 mg PO TID #90 tablet 11/27/16 Naproxen Sodium [Aleve 220 MG (*)] 440 mg PO BID #0 tab 11/27/16 Polyethylene Glycol 3350 [Miralax 17 gm PO DAILY #0 pkt 11/27/16 17 gm (*)] Sennosides [Senokot] 1 tab PO TID #0 tab 11/27/16 oxyCODONE IR [Oxycodone Ir (*)] 5 - 10 mg PO Q4 PRN #50 tab 11/27/16 LORazepam [Ativan] 0.5 mg PO Q8H #15 tablet 11/28/16 Medical Decision Making ED Course/Re-evaluation: The patient was evaluated and managed by the physician office clerk assistant. I have reviewed this chart and I agree with the findings and plan of care as documented , as indicated by my signature. I am the secondary supervising physician. ( Carmela Elliott) Departure - Departure Disposition: Home, Routine, Self-Care Clinical Impression: Leg pain, left, Encounter for medication refill Condition: Good Instructions: Leg Pain (ED) Additional Instructions: 1. Follow up with primary care physician 2. Per follow-up with paint formulator Referrals: Anila Olmedo, PAC [Primary Care Provider] - As per Instructions Stand Alone Forms: Narcotic Guidelines
== END 2016-12-04 16:10 | disposition home or self-care (01) ==
DX: Z76.0 Encounter for issue of repeat prescription (principal); M79.605 Pain in left leg; F17.200 Nicotine dependence, unspecified, uncomplicated

== ENCOUNTER 2016-12-14 15:20 | Emergency (ER) | payer MEDICAID ==
--- NOTE | 2016-12-14 17:04 | EDPHY ---
H & P Stated Complaint: L foot pain for 4 days Time Seen by Provider: 12/14/16 17:03 HPI/ROS: HPI: This is a 31-year-old male who presents with Chief Complaint: Left foot pain Location: Left foot plantar aspect Quality: Pain Duration: 4 days Signs and Symptoms: No injury, no swelling, no redness, no calf pain, no recent long distance travel, no numbness, no tingling Timing: Sudden, worse with weight-bearing Severity: 8 Context: Patient states that he has been doing physical therapy status post CVA secondary to polysubstance overdose and what seems like a toxic brain injury and has noted on the bottom of his left foot that started at the heel and has progressed to the top aching pain. Does not wear flip-flops. Does not seem for long periods of time. He missed his appointment with Podiatry last week to get an ankle brace to prevent footdrop. Modifying Factors: Oxycodone, gabapentin, naproxen no relief Comment: ROS: Constitutional: No fever, no chills, no weight loss Eyes: No blurred vision Respiratory: No shortness of breath, no cough Cardiovascular: No chest pain Gastrointestinal: No nausea, no vomiting no diarrhea Genitourinary: No dysuria Extremities: No myalgias Neurologic: No weakness, no numbness Skin: No rashes Hematologic: No bruising, no bleeding MEDICAL/SURGICAL HISTORY: Cerebral vascular accident, multiple fractures, rhabdomyolysis, polysubstance abuse in the past Source: Patient Exam Limitations: No limitations - Personal History Current Tetanus/Diphtheria Vaccine: Yes Current Tetanus Diphtheria and Acellular Pertussis (TDAP): Yes Tetanus Vaccine Date: 2012 - Medical/Surgical History Hx Asthma: No Hx Chronic Respiratory Disease: No Hx Diabetes: No Hx Cardiac Disease: No Hx Renal Disease: No Hx Cirrhosis: No Hx Alcoholism: No Hx HIV/AIDS: No Hx Splenectomy or Spleen Trauma: No Other PMH: collar bone age 16, rt arm broken, rt leg fracture,Nov 14 2016 cerebraql vascular accident rhabdo, encephalopathy - Social History Smoking Status: Current every day smoker - Physical Exam Exam: CONSTITUTIONAL: Adult white male, awake and alert, no obvious distress HEENT: Atraumatic and normocephalic, PERRL, EOMI. Tympanic membranes clear. Oropharynx clear, no exudate and moist pink mucosa. Airway patent. No lymphadenopathy. No meningismus. Cardiovascular: Normal S1/S2, regular rate, regular rhythm, without murmur rub or gallop. PULMONARY/CHEST: Symmetrical and nontender. Clear to auscultation bilaterally Good air movement. No accessory muscle usage. ABDOMEN: Soft, nondistended, nontender, no rebound, no guarding, no peritoneal signs, no masses or organomegaly. No CVAT. EXTREMITIES: 2/2 pulses, no deformities, no clubbing, no cyanosis or edema. Left lower leg shows remote well-healed incision over the tib-fib area; consistent with broken leg in the past; no signs of erythema; no calf pain. Left foot pes planus; tenderness to palpation on the entire plantar surface of the foot; especially over the heel; no midfoot tenderness to palpation. Plantar flexion and dorsiflexion intact. NEUROLOGICAL: no focal neuro deficits. GCS 15. Mild expressive aphasia noted. SKIN: Warm and dry, no erythema. no rash. Good capillary refill. Constitutional: Initial Vital Signs Temperature (C) 36.9 C 12/14/16 15:22 Heart Rate 121 H 12/14/16 15:22 Respiratory Rate 16 12/14/16 15:22 Blood Pressure 119/85 H 12/14/16 15:22 O2 Sat (%) 97 12/14/16 15:22 O2 Delivery Mode Room Air Allergies/Adverse Reactions: No Known Allergies Allergy (Verified 12/04/16 15:09) Home Medications: Medication Instructions Recorded Gabapentin [Gabapentin 800 mg] 800 mg PO TID #90 tablet 11/27/16 Naproxen Sodium [Aleve 220 MG (*)] 440 mg PO BID #0 tab 11/27/16 Polyethylene Glycol 3350 [Miralax 17 gm PO DAILY #0 pkt 11/27/16 17 gm (*)] Sennosides [Senokot] 1 tab PO TID #0 tab 11/27/16 oxyCODONE IR [Oxycodone Ir (*)] 5 - 10 mg PO Q4 PRN #50 tab 11/27/16 LORazepam [Ativan] 0.5 mg PO Q8H #15 tablet 11/28/16 Medical Decision Making - Diagnostics Imaging Results: Imaging Impressions Foot X-Ray 12/14/16 16:25 Impression: Negative left foot radiographs. ED Course/Re-evaluation: X-rays obtained and showed no acute fracture/dislocation Patient has flat feet; recommend heel arch support insert Etiology includes plantar fasciitis and peripheral neuropathy that is uncontrolled Recommend follow up with Podiatry Moderate relief of pain with Valium. Politely declined crutches. No signs of neurovascular compromise/ischemia/cellulitis/claudication Differential Diagnosis: Differential diagnosis includes but is not limited to foot toe fractures, patellar dislocation, metatarsophalangeal sprain, calcaneal bursitis, plantar fasciitis, peripheral neuropathy. - Data Points Medications Given: Discontinued Medications Diazepam (Valium) 5 mg PO EDNOW ONE Stop: 12/14/16 17:08 Last Admin: 12/14/16 17:15 Dose: 5 mg Departure - Departure Disposition: Home, Routine, Self-Care Clinical Impression: Pes planus of left foot, Plantar fasciitis of left foot Peripheral neuropathy Qualifiers: Peripheral neuropathy type: polyneuropathy, unspecified Qualified Code(s): G62.9 - Polyneuropathy, unspecified Condition: Good Instructions: Plantar Fasciitis (ED), Plantar Fasciitis Exercises (ED) Additional Instructions: Recommend that you see a parcel post officer and get fitted for heel arch supports and ankle brace. Continue to go to physical therapy and perform stretching exercises for plantar fasciitis. Wear proper fitting shoes. Apply ice to the area for 30-40 minutes 2 to 3 times a day for the next 1-2 days. Stay off feet as much as possible until pain resolves. The x-rays obtained in the emergency department today demonstrate no evidence of an obvious fracture. Sometimes fractures are not obvious on the initial set of x-rays performed in the ED. For this reason, you should have repeat x-rays performed in 7-10 days if you are having any pain exclude the possibility of an occult fracture. Referrals: Anila Olmedo, JACKIE [Primary Care Provider] - As per Instructions Brice Mandujano DPM [Doctor of Podiatric Medicine] - 2-3 days, call for appt.
[2016-12-14] MEDS ORDERED: DIAZEPAM 5 MG TAB PO ONE (17:07)
[2016-12-14 17:22] VITALS: BP 116/74; PULSE 110; RESP 20; TEMP 98.6; O2SAT 94
== END 2016-12-14 17:27 | disposition home or self-care (01) ==
DX: M72.2 Plantar fascial fibromatosis (principal); M21.42 Flat foot [pes planus] (acquired), left foot; G62.9 Polyneuropathy, unspecified; F17.200 Nicotine dependence, unspecified, uncomplicated; Z86.73 Personal history of transient ischemic attack (TIA), and cerebral infarction without residual deficits

== ENCOUNTER 2016-12-30 04:10 | Emergency (ER) | payer MEDICAID ==
--- NOTE | 2016-12-30 04:22 | EDPHY ---
H & P HPI/ROS: HPI CHIEF COMPLAINT: Left leg pain x1 month HISTORY OF PRESENT ILLNESS: This patient is a 31-year-old male, he has a history of polysubstance abuse and subsequently had hypoxic ischemic encephalopathy, found to have brain dysfunction, tobacco abuse, chronic pain, rhabdomyolysis and elevated creatinine, presents emergency room this evening by EMS from private residence and states he has had leg pain x1 month it is no better. Patient denies any recent trauma. Complaining of left foot pain. Denies any recent trauma. States pain is been present for 1 month. Denies drugs. Denies alcohol. Past Medical History: Polysubstance abuse, hypoxic ischemic encephalopathy with brain dysfunction, tobacco use, chronic pain, rhabdomyolysis, acute kidney injury Past Surgical History: No recent surgery, history of left tib-fib surgery. Social History: Denies any drugs alcohol tobacco. Family History: Noncontributory ROS REVIEW OF SYSTEMS: A comprehensive 10 point review of systems is otherwise negative aside from elements mentioned in the history of present illness. Exam Constitutional smell alcohol, triage nursing summary reviewed, vital signs reviewed, awake/alert. Eyes normal conjunctivae and sclera, EOMI, PERRLA. HENT normal inspection, atraumatic, moist mucus membranes, no epistaxis, neck supple/ no meningismus, no raccoon eyes. Respiratory clear to auscultation bilaterally, normal breath sounds, no respiratory distress, no wheezing. Cardiovascular rate normal, regular rhythm, no murmur, no edema, distal pulses normal. Gastrointestinal soft, non-tender, no rebound, no guarding, normal bowel sounds, no distension, no pulsatile mass. Genitourinary no CVA tenderness. Musculoskeletal: left lower extremity: Neurovascularly intact good distal pulse. Warm extremity good cap refill. Sensation intact. Old scar down the anterior left tibia, compartments are soft, no signs of infection no signs of redness. no midline vertebral tenderness, full range of motion, no calf swelling, no tenderness of extremities, no meningismus, good pulses, neurovascularly intact. Right lower extremity in walking boot. No signs of infection. Skin pink, warm, & dry, no rash, skin atraumatic. Neurologic awake, alert and oriented x 3, AAOx3, moves all 4 extremities equally, motor intact, sensory intact, CN II-XII intact, normal cerebellar, normal vision, normal speech. Psychiatric normal mood/affect. Heme/Lymph/Immune no lymphadenopathy. Differential Diagnosis: Includes but is not limited to in a particular order: Acute on chronic leg pain, iliotibial band syndrome, arthritis, DVT, rhabdomyolysis, kidney failure, alcohol intoxication Medical Decision Making: This patient upon arrival denies alcohol or drugs however he smells of alcohol on evaluation the emergency room. His serum alcohol level is 241. Complaint of left leg pain x1 month. On exam I do not appreciate acute abnormalities his left leg. He is neurologic intact. Neurovascularly intact. Warm extremity with a good pulse. Will ultrasound left leg to rule out DVT x-ray left foot given where he has pain and re- evaluate. Hold pain medicine as alcohol levels acutely elevated. Re-evaluation: 0503: Ultrasound of the left lower extremity. The results of the study are negative for DVT. Unremarkable lower extremity ultrasound. I discussed the results of this study with the radiologist Dr. Bolton ED x-ray: Left foot: Negative for acute fracture. Image interpreted by myself [id number]: Re-evaluation patient patient resting comfortably. He had elevated alcohol level. He is much more sober now., cooperative. His exam and workup for left foot pain left leg pain is unremarkable is unremarkable ultrasound, x- ray is unremarkable. This most likely nerve related pain due to his recent drug overdose and being on that side for prolonged time. He tells me has a Neurology appointment today at 9:45 a.m. to help with his neuropathy her nerve pain. He is on gabapentin. I encouraged him to go to his neurology appointment today for follow-up care. He understands he is more welcome to return emergency room at any time he has any worsening symptoms questions or concerns. I also encouraged him to stop drinking alcohol. Source: Patient, EMS - Personal History Tetanus Vaccine Date: 2012 - Medical/Surgical History Hx Asthma: No Hx Chronic Respiratory Disease: No Hx Diabetes: No Hx Cardiac Disease: No Hx Renal Disease: No Hx Cirrhosis: No Hx Alcoholism: No Hx HIV/AIDS: No Hx Splenectomy or Spleen Trauma: No Other PMH: collar bone age 16, rt arm broken, rt leg fracture,Nov 14 2016 cerebraql vascular accident rhabdo, encephalopathy - Social History Smoking Status: Current every day smoker Constitutional: Initial Vital Signs Temperature (C) 37 C 12/30/16 04:28 Heart Rate 125 H 12/30/16 04:28 Respiratory Rate 20 12/30/16 04:28 Blood Pressure 137/91 H 12/30/16 04:28 O2 Sat (%) 94 12/30/16 04:28 O2 Delivery Mode Room Air Allergies/Adverse Reactions: No Known Allergies Allergy (Verified 12/30/16 04:23) Home Medications: Medication Instructions Recorded Gabapentin [Gabapentin 800 mg] 800 mg PO TID #90 tablet 11/27/16 Naproxen Sodium [Aleve 220 MG (*)] 440 mg PO BID #0 tab 11/27/16 Polyethylene Glycol 3350 [Miralax 17 gm PO DAILY #0 pkt 11/27/16 17 gm (*)] Sennosides [Senokot] 1 tab PO TID #0 tab 11/27/16 oxyCODONE IR [Oxycodone Ir (*)] 5 - 10 mg PO Q4 PRN #50 tab 11/27/16 LORazepam [Ativan] 0.5 mg PO Q8H #15 tablet 11/28/16 Medical Decision Making - Data Points Laboratory Results: Laboratory Results 12/30/16 04:14 12/30/16 04:14 12/30/16 12/30/16 12/30/16 05:10 04:14 04:14 WBC 8.42 10^3/uL 10^3/uL (3.80-9.50) RBC 4.49 10^6/uL 10^6/uL (4.40-6.38) Hgb 14.5 g/dL g/dL (13.7-17.5) Hct 39.9 % L % (40.0-51.0) MCV 88.9 fL fL (81.5-99.8) MCH 32.3 pg pg (27.9-34.1) MCHC 36.3 g/dL g/dL (32.4-36.7) RDW 12.5 % % (11.5-15.2) Plt Count 304 10^3/uL 10^3/uL (150-400) MPV 8.8 fL fL (8.7-11.7) Neut % (Auto) 59.1 % % (39.3-74.2) Lymph % (Auto) 31.5 % % (15.0-45.0) [place] % (Auto) 6.4 % % (4.5-13.0) Eos % (Auto) 2.1 % % (0.6-7.6) Baso % (Auto) 0.5 % % (0.3-1.7) Nucleat RBC Rel Count 0.0 % % (0.0-0.2) Absolute Neuts (auto) 4.98 10^3/uL 10^3/uL (1.70-6.50) Absolute Lymphs (auto) 2.65 10^3/uL 10^3/uL (1.00-3.00) Absolute Monos (auto) 0.54 10^3/uL 10^3/uL (0.30-0.80) Absolute Eos (auto) 0.18 10^3/uL 10^3/uL (0.03-0.40) Absolute Basos (auto) 0.04 10^3/uL 10^3/uL (0.02-0.10) Absolute Nucleated RBC 0.00 10^3/uL 10^3/uL (0-0.01) Immature Gran % 0.4 % % (0.0-1.1) Immature Gran # 0.03 10^3/uL 10^3/uL (0.00-0.10) Sodium 141 mEq/L mEq/L (134-144) Potassium 3.8 mEq/L mEq/L (3.5-5.2) Chloride 103 mEq/L mEq/L (97-110) Carbon Dioxide 22 mEq/l mEq/l (22-31) Anion Gap 16 mEq/L mEq/L (8-16) BUN 10 mg/dL mg/dL (7-23) Creatinine 0.8 mg/dL mg/dL (0.7-1.3) Estimated GFR > 60 Glucose 98 mg/dL mg/dL (70-100) Calcium 9.3 mg/dL mg/dL (8.5-10.4) Creatine Kinase 474 IU/L H IU/L (0-224) CK-MB (CK-2) Fraction 4.48 ng/mL H ng/mL (0.00-3.19) CK-MB (CK-2) % 0.9 % % (0.0-4.0) Creatine Kinase Interp NEGATIVE (NEGATIVE) Salicylates < 1.0 mg/dL L mg/dL (2.0-20.0) Urine Opiates Screen NEGATIVE (NEGATIVE) Acetaminophen < 10 mcg/mL L mcg/mL (10-30) Urine Barbiturates NEGATIVE (NEGATIVE) Ur Phencyclidine Scrn NEGATIVE (NEGATIVE) Ur Amphetamine Screen NEGATIVE (NEGATIVE) U Benzodiazepines Scrn NEGATIVE (NEGATIVE) Urine Cocaine Screen NEGATIVE (NEGATIVE) U Marijuana (THC) Screen NEGATIVE (NEGATIVE) Ethyl Alcohol 241 mg/dL H mg/dL (0-10) Medications Given: Discontinued Medications Sodium Chloride (Ns) 1,000 mls @ 0 mls/hr IV ONCE ONE PRN Reason: Wide Open Stop: 12/30/16 05:14 Last Admin: 12/30/16 05:18 Dose: 1,000 mls Ibuprofen (Motrin) 800 mg PO EDNOW ONE Stop: 12/30/16 04:30 Last Admin: 12/30/16 04:38 Dose: 800 mg Departure - Departure Disposition: Home, Routine, Self-Care Clinical Impression: Alcohol intoxication Qualifiers: Complication of substance-induced condition: uncomplicated Qualified Code(s): F10.920 - Alcohol use, unspecified with intoxication, uncomplicated Leg pain Qualifiers: Laterality: left Qualified Code(s): M79.605 - Pain in left leg Condition: Good Instructions: Alcohol Intoxication (ED) Referrals: Patient,NotPresent [Unknown] - As per Instructions
[2016-12-30 04:32] VITALS: RESP 20
[2016-12-30 04:32] LABS: % IMMATURE GRANULYOCYTES 0.4 % (0.0-1.1); ABSOLUTE IMMATURE GRANULOCYTES 0.03 10^3/uL (0.00-0.10); ADD DIFF? NO; ADD MORPH? NO; ADD SCAN? NO; ATYPICAL LYMPHOCYTE FLAG 10 (0-99); FRAGMENT RBC FLAG 0 (0-99); HEMATOCRIT 39.9 % (40.0-51.0); HEMOGLOBIN 14.5 g/dL (13.7-17.5); LEFT SHIFT FLG 0 (0-99); LIPEMIA HEMOLYSIS FLAG 90 (0-99); MEAN CELL HEMOGLOBIN 32.3 pg (27.9-34.1); MEAN CELL HEMOGLOBIN CONCENTR. 36.3 g/dL (32.4-36.7); MEAN CELL VOLUME 88.9 fL (81.5-99.8); MEAN PLATELET VOLUME 8.8 fL (8.7-11.7); PLATELET CLUMPS FLAG 10 (0-99); PLATELET COUNT 304 10^3/uL (150-400); RED BLOOD CELL COUNT 4.49 10^6/uL (4.40-6.38); RED CELL DISTRIBUTION WIDTH 12.5 % (11.5-15.2)
[2016-12-30] MEDS: IBUPROFEN 200 MG TAB PO ONE (04:38)
[2016-12-30 04:42] LABS: ANION GAP 16 mEq/L (8-16); CALCIUM 9.3 mg/dL (8.5-10.4); CARBON DIOXIDE 22 mEq/l (22-31); CHLORIDE 103 mEq/L (97-110); CREATININE 0.8 mg/dL (0.7-1.3); ETHANOL SERUM 241 mg/dL (0-10); GLOMERULAR FILTRATION RATE > 60; GLUCOSE 98 mg/dL (70-100); POTASSIUM 3.8 mEq/L (3.5-5.2); SALICYLATE < 1.0 mg/dL (2.0-20.0); SODIUM 141 mEq/L (134-144)
[2016-12-30 04:58] LABS: CK-MB INTERPRETATION NEGATIVE (NEGATIVE)
[2016-12-30 04:59] LABS: CREATINE KINASE-MB FRACTION 4.48 ng/mL (0.00-3.19)
[2016-12-30] MEDS: NS 1,000 ML IV ONE (05:18)
[2016-12-30 06:52] VITALS: BP 149/93; PULSE 115; TEMP 98.2; O2SAT 97
== END 2016-12-30 07:01 | disposition home or self-care (01) ==
LOC: EDUNIT#
DX: M79.605 Pain in left leg (principal); F10.920 Alcohol use, unspecified with intoxication, uncomplicated; F17.200 Nicotine dependence, unspecified, uncomplicated
CPT/HCPCS: 80305; G0480

== ENCOUNTER 2018-09-29 15:44 | Observation (INO) | payer MEDICAID | END 2018-09-29 20:09 | disposition home or self-care (01) ==